=== PATIENT | male | born 1980 | race Two or more races ===

== ENCOUNTER 2020-01-07 12:10 | Outpatient (REF) | payer OTHER, SELFPAY ==
[2020-01-07 13:08] LABS: MANUAL DIFF FLAG NO
[2020-01-07 13:15] LABS: Basophils Absolute Auto 0.1 X10*3/uL (0.0-0.2); Basophils Percent Auto 0.5 % (0-2); Eosinophils Absolute Auto 0.1 X10*3/uL (0.0-0.4); Hematocrit 49.4 % (42-52); Hemoglobin 15.5 g/dl (14.0-18.0); Imm Gran Abs Auto 0.04 X10*3/uL (0.00-0.03); Imm Gran Pct Auto 0.4 % (0.0-0.4); Lymphocytes Absolute Auto 1.7 X10*3/uL (1.2-4.9); Mean Corpuscular HGB Conc 31.4 g/dl (31.0-36.0); Mean Corpuscular Volume 79.8 fL (80-98); Monocytes Absolute Auto 0.7 X10*3/uL (0.1-1.2); Monocytes Percent Auto 6.7 % (2-11); Neutrophils Absolute Auto 7.2 X10*3/uL (2.0-8.3); Neutrophils Percent Auto 74.4 % (45-73); Platelet Count 415 X10*3/uL (160-400); Red Blood Count 6.19 X10*6/uL (4.60-5.80); Red Cell Distribution Width 18.6 % (11.0-16.0); White Blood Count 9.7 X10*3/uL (4.8-10.8)
[2020-01-07 13:48] LABS: Alanine Aminotransferase 84 U/L (0-40); Albumin Level 3.9 g/dL (3.5-5.0); Alkaline Phosphatase 49 U/L (39-117); Anion Gap 14 (12-20); Aspartate Amino Transferase 73 U/L (5-37); Bilirubin Direct 0.4 mg/dL (0.0-0.5); Bilirubin Total 0.9 mg/dL (0.0-1.0); Blood Urea Nitrogen 24 mg/dL (9-16); C Reactive Protein 0.37 mg/dL (< or = 0.50); Calcium 9.1 mg/dL (8.4-10.2); Carbon Dioxide 25 mmol/L (22-29); Chloride 103 mmol/L (96-108); Estimated Glomerular Filt Rate 53; Glucose Random 188 mg/dL (60-115); Potassium 4.8 mmol/l (3.3-5.1); Sodium 137 mmol/L (135-145); Total Protein 6.6 g/dL (6.5-8.0)
== END 2020-01-07 12:11 | disposition home or self-care (01) ==
LOC: HO.LAB 12:10
PROVIDERS: PCP Internal Medicine; Visit Provider Internal Medicine Gastroenterology
DX: K52.9 Noninfective gastroenteritis and colitis, unspecified (principal)
CPT/HCPCS: 36415; 80048; 80076; 85025; 86140

== ENCOUNTER 2020-01-08 09:06 | Outpatient (REF) | payer OTHER, SELFPAY ==
[2020-01-08 15:17] LABS: CDIFF Ag Negative (Negative); CDIFF Internal ctrl Dots and bkg OK (V); CDiff Toxin Negative (Negative)
[2020-01-15 16:17] LABS: Calprotectin, Fecal 64 mcg/g
== END 2020-01-08 09:07 | disposition home or self-care (01) ==
LOC: HO.LNP 09:06
PROVIDERS: Visit Provider Internal Medicine Gastroenterology
DX: K52.9 Noninfective gastroenteritis and colitis, unspecified (principal)
CPT/HCPCS: 83993; 87045; 87046; 87324; 87449

== ENCOUNTER 2020-01-15 10:26 | Outpatient (REF) | payer OTHER, SELFPAY ==
--- NOTE | 2020-01-15 | US_ITS ---
EXAMINATION: US ABDOMEN LIMITED WITH LIVER ELASTOGRAPHY CLINICAL INFORMATION: Liver lesion seen on CT COMPARISON: CT from 05/04/2019. Ultrasound 01/28/2020. TECHNIQUE: Real-time imaging of the right upper quadrant abdominal viscera. Noninvasive ultrasound liver fibrosis assessment is performed using Thuy ElastPQ point quantification shear wave elastography (pSWE) with a 5 MHz transducer. Multiple elastography samples are obtained. FINDINGS: PANCREAS: Not well seen secondary to bowel gas. LIVER: Multiple hyperechoic lesions are again seen within the liver, as previously visualized. The largest is seen in the left lobe measuring 1.4 cm. The liver demonstrates normal contour and echogenicity. No intrahepatic biliary duct dilatation. The right lobe measures 20.1 cm in length. The left lobe measures 14.3 cm in length. Hepatopedal flow of the main portal vein. Shear wave elastography provides a median stiffness of 1.46 m/s (reference: normal median stiffness is 0.8 1-1 0.22 m/s). The IQR/median stiffness to assess sampling precision is 0.18 (reference: optimal IQR/median stiffness is under 0.3). GALLBLADDER: Normal. The gallbladder is physiologically distended without evidence of stones, sludge, polyps, wall thickening or pericholecystic fluid. COMMON BILE DUCT: Normal in caliber measuring 0.4 cm in diameter. RIGHT KIDNEY: Normal. No hydronephrosis. No renal calculi or focal parenchymal lesions. The kidney measures 12.1 cm in maximum dimension. FREE FLUID: None. US/US abdomen altamirano w elastography IMPRESSION: 1. Mild hepatomegaly. Multiple hyperechoic liver lesions are again noted, as seen on previous imaging. These likely represent hemangiomas, but this could be confirmed with MRI. 2. Elastography: Liver elastography measurements are consistent with a moderate risk for clinically significant liver fibrosis (METAVIR Stage F2-F3).
== END 2020-01-15 10:27 | disposition home or self-care (01) ==
LOC: HO.US 10:26
PROVIDERS: PCP Internal Medicine; Visit Provider Internal Medicine Gastroenterology
DX: K76.9 Liver disease, unspecified (principal)
CPT/HCPCS: 76705; 76981

== ENCOUNTER → 2020-02-08 09:04 | Outpatient (BNVA) | payer OTHER, SELFPAY | PROVIDERS: PCP Internal Medicine; Referring Provider Internal Medicine; Visit Provider Internal Medicine Gastroenterology | DX: Z76.89 Persons encountering health services in other specified circumstances (principal) ==

== ENCOUNTER 2020-02-11 09:00 | Outpatient (REF) | payer OTHER, SELFPAY ==
[2020-02-13 13:57] LABS: H Pylori Breath Test DETECTED (NOT DETECTED)
== END 2020-02-11 09:01 | disposition home or self-care (01) ==
LOC: HO.LNP 09:00
PROVIDERS: PCP Internal Medicine; Visit Provider Internal Medicine Gastroenterology
DX: Z11.0 Encounter for screening for intestinal infectious diseases (principal)
CPT/HCPCS: 83013; 99211

== ENCOUNTER 2020-02-19 02:25 | Emergency (ER) | payer OTHER, SELFPAY ==
[2020-02-19 03:11] VITALS: BP 150/86; PULSE 96; RESP 16; TEMP 37.1; O2SAT 97; BMI 32.5
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
[2020-02-19] MEDS: predniSONE 20 MG TABLET 60 MG PO (04:01)
[2020-02-19] MEDS: Ibuprofen 600 MG TABLET PO (04:01)
== END 2020-02-19 04:08 | disposition home or self-care (01) ==
PROVIDERS: Emergency Provider Internal Medicine
DX: M23.91 Unspecified internal derangement of right knee (principal); M25.561 Pain in right knee; M25.562 Pain in left knee; F17.210 Nicotine dependence, cigarettes, uncomplicated; Z71.6 Tobacco abuse counseling; Z79.899 Other long term (current) drug therapy
CPT/HCPCS: 99283; 99284

== ENCOUNTER 2020-02-21 09:13 | Outpatient (REF) | payer OTHER, SELFPAY ==
[2020-02-21 10:25] LABS: MANUAL DIFF FLAG NO
[2020-02-21 10:28] LABS: Basophils Percent Auto 0.2 % (0-2); Eosinophils Percent Auto 0.1 % (0-4); Hematocrit 48.9 % (42-52); Hemoglobin 15.2 g/dl (14.0-18.0); Imm Gran Abs Auto 0.07 X10*3/uL (0.00-0.03); Imm Gran Pct Auto 0.5 % (0.0-0.4); Lymphocytes Absolute Auto 2.6 X10*3/uL (1.2-4.9); Lymphocytes Percent Auto 17.6 % (20-40); Mean Corpuscular HGB Conc 31.1 g/dl (31.0-36.0); Mean Corpuscular Hemoglobin 24.7 pg (27.0-33.0); Mean Corpuscular Volume 79.4 fL (80-98); Mean Platelet Volume 10.3 fL (9.4-12.4); Monocytes Absolute Auto 0.8 X10*3/uL (0.1-1.2); Monocytes Percent Auto 5.1 % (2-11); Neutrophils Absolute Auto 11.5 X10*3/uL (2.0-8.3); Neutrophils Percent Auto 76.5 % (45-73); Platelet Count 428 X10*3/uL (160-400); Red Blood Count 6.16 X10*6/uL (4.60-5.80); Red Cell Distribution Width 18.4 % (11.0-16.0)
[2020-02-21 11:00] LABS: Uric Acid 1.7 mg/dL (3.4-7.0)
[2020-02-21 11:16] LABS: Erythrocyte Sedimentation Rate 6 MM/HR (0-15)
[2020-02-23 13:27] LABS: Lyme Abs Screen <0.90 index
[2020-02-25 03:52] LABS: Syphilis Screen Nonreactive (Nonreactive)
== END 2020-02-21 09:14 | disposition home or self-care (01) ==
LOC: HO.LAB 09:13
PROVIDERS: PCP Hospitalist; Visit Provider Physical Medicine & Rehabilitation
DX: M25.50 Pain in unspecified joint (principal)
CPT/HCPCS: 36415; 84550; 85025; 85652; 86618; 86780

== ENCOUNTER → 2020-02-25 09:29 | Outpatient (BNVA) | payer OTHER, SELFPAY | PROVIDERS: Visit Provider Orthopaedic Surgery | DX: L03.116 Cellulitis of left lower limb (principal) | CPT/HCPCS: 99202 ==

== ENCOUNTER 2020-03-06 10:59 | Outpatient (REF) | payer OTHER, SELFPAY ==
[2020-03-06 12:01] LABS: MANUAL DIFF FLAG NO
[2020-03-06 12:17] LABS: Basophils Percent Auto 0.3 % (0-2); Eosinophils Absolute Auto 0.1 X10*3/uL (0.0-0.4); Eosinophils Percent Auto 1.4 % (0-4); Hematocrit 49.1 % (42-52); Hemoglobin 15.2 g/dl (14.0-18.0); Imm Gran Abs Auto 0.02 X10*3/uL (0.00-0.03); Imm Gran Pct Auto 0.3 % (0.0-0.4); Lymphocytes Absolute Auto 1.5 X10*3/uL (1.2-4.9); Mean Corpuscular Hemoglobin 24.2 pg (27.0-33.0); Mean Corpuscular Volume 78.2 fL (80-98); Monocytes Absolute Auto 0.6 X10*3/uL (0.1-1.2); Neutrophils Absolute Auto 5.6 X10*3/uL (2.0-8.3); Platelet Count 420 X10*3/uL (160-400); Red Blood Count 6.28 X10*6/uL (4.60-5.80); Red Cell Distribution Width 17.4 % (11.0-16.0); White Blood Count 7.8 X10*3/uL (4.8-10.8)
[2020-03-06 12:23] LABS: INTERNATIONAL NORM RATIO 1.1 (0.9-1.1); Prothrombin Time 12.8 SEC (10.8-13.0)
[2020-03-06 12:37] LABS: Alanine Aminotransferase 108 U/L (0-40); Albumin Level 3.9 g/dL (3.5-5.0); Alkaline Phosphatase 60 U/L (39-117); Anion Gap 12 (12-20); Aspartate Amino Transferase 96 U/L (5-37); Bilirubin Total 0.5 mg/dL (0.0-1.0); Blood Urea Nitrogen 27 mg/dL (9-16); Calcium 9.4 mg/dL (8.4-10.2); Carbon Dioxide 27 mmol/L (22-29); Chloride 107 mmol/L (96-108); Estimated Glomerular Filt Rate > 60; Gamma Glutamyl Transpeptidase 44 U/L (11-51); Iron 40 mcg/dL (45-160); Percent Iron Saturation 10 % (15-50); Potassium 4.6 mmol/l (3.3-5.1); Sodium 141 mmol/L (135-145); Total Iron Binding Capacity 394 mcg/dL (228-428); Total Protein 6.7 g/dL (6.5-8.0); Unsaturated Iron Binding 354 ug/dL
[2020-03-06 12:51] LABS: Glucose Random 54 mg/dL (60-115)
[2020-03-06 13:13] LABS: Ferritin 40 ng/mL (20-250)
[2020-03-07 08:01] LABS: Hepatitis A Antibody IgG REACTIVE (Nonreactive); ~Hepatitis A Antibody IgG 13.16 S/CO (0.00-0.99)
[2020-03-07 08:06] LABS: HBsAGNum1 0.22 S/CO (0.00-0.99); Hepatitis B Surface Antigen Negative (Negative)
[2020-03-07 08:20] LABS: HBS Num1 0.33 mIU/mL (0-7.99); HBc Num1 0.08 S/CO (0.00-0.79); Hepatitis B Core Antibody Nonreactive (Nonreactive); ~HepC Num1 0.07 S/CO (0.00-0.79); ~Hepatitis B Surface Antibody NONREACTIVE (Nonreactive); ~Hepatitis C Antibody Nonreactive (Nonreactive)
[2020-03-07 13:18] LABS: Anti Nuclear Antibody Screen NEGATIVE (NEGATIVE)
[2020-03-07 16:27] LABS: Immunoglobulin G 1119 mg/dL (600-1640)
[2020-03-08 13:52] LABS: Alpha 1 Anti-trypsin 145 mg/dL (83-199); Ceruloplasmin 34 mg/dL (18-36)
[2020-03-09 13:27] LABS: Mitochondrial Antibodies NEGATIVE (NEGATIVE)
[2020-03-11 23:18] LABS: Smooth Muscle Antibody <20 U (<20)
== END 2020-03-06 11:00 | disposition home or self-care (01) ==
LOC: HO.LAB 10:59
PROVIDERS: PCP Hospitalist; Visit Provider Internal Medicine Gastroenterology
DX: K52.839 Microscopic colitis, unspecified (principal); R94.5 Abnormal results of liver function studies
CPT/HCPCS: 36415; 80053; 82103; 82390; 82550; 82728; 82784; 82977; 83540; 85025; 85610; 86038; 86039; 86255; 86256; 86704; 86706; 86708; 86803; 87340

== ENCOUNTER 2020-04-17 09:29 | Outpatient (REF) | payer OTHER, SELFPAY ==
--- NOTE | ~2020-04-17 | MR_ITS ---
EXAMINATION: MR ABDOMEN WITHOUT AND WITH CONTRAST CLINICAL INFORMATION: Abnormal liver function tests. Liver lesions. COMPARISON: Previous CT of the abdomen and pelvis April 2019 and abdominal ultrasound elastography December 2019 TECHNIQUE: MR abdomen was performed without and with use of 10 mL intravenous Gadavist gadolinium contrast. Postcontrast images are performed in multiphase dynamic sequences. Imaging was performed in 3 planes. MRCP sequences were also performed. Exam is very limited due to respiratory motion artifact. FINDINGS: LUNG BASES: The visualized lung bases are unremarkable. LIVER, GALLBLADDER, AND BILIARY TREE: The liver is slightly enlarged, right lobe measuring 20 cm. There is mild fatty infiltration of the liver. The liver is normal in contour.There are 4 bright on T2-weighted sequences lesions seen in the liver. These measure 7 mm in the peripheral liver at the junction of the medial segment of the left lobe and anterior segment of the right lobe axial image 16 series 10, 1 cm in the peripheral right lobe axial image 19 series 10, 5 mm in the posterior segment of the right lobe axial image 28 series 10, and 1.1 cm in the lateral segment of the left lobe axial image 22 series 10. The 2 larger lesions are seen on T1-weighted sequences and appear low signal. The 2 larger lesions demonstrate peripheral puddling enhancement following contrast compatible with benign hemangiomas. The 2 smaller lesions are well visualized post-contrast. Larger lesions are compatible with hemangiomas. Smaller lesions are difficult to accurately characterize. The gallbladder is normal. There is no biliary duct dilatation. PANCREAS: Unremarkable. SPLEEN: The spleen is upper normal in size.. The spleen measures 13.3 cm in length. ADRENAL GLANDS: Normal. KIDNEYS AND URETERS: The kidneys are normal in size, shape, and enhance symmetrically. No hydronephrosis. No perinephric stranding. GASTROINTESTINAL TRACT: No bowel obstruction. No ascites or fluid collection. ABDOMINAL WALL: No significant hernia is appreciated. LYMPH NODES: No lymphadenopathy. VASCULAR: Unremarkable. OSSEOUS STRUCTURES: Marrow signal normal. MR/MR abdomen wo/w con IMPRESSION: Very limited exam due to respiratory motion artifact. Four liver lesions seen. The 2 larger lesions in the peripheral right lobe and lateral segment of the left lobe near the falciform ligament are compatible with benign hemangiomas. Two smaller lesions at the junction of the medial segment of the left lobe and anterior segment of the right lobe and posterior segment of the right lobe are not visualized on all sequences and difficult to characterize. Slightly enlarged fatty liver. Upper normal-size spleen.
== END 2020-04-17 09:30 | disposition home or self-care (01) ==
LOC: HO.MRI 09:29
PROVIDERS: Visit Provider Internal Medicine Gastroenterology
DX: R16.0 Hepatomegaly, not elsewhere classified (principal); R94.5 Abnormal results of liver function studies
CPT/HCPCS: 74183; A9585

== ENCOUNTER → 2020-05-09 09:49 | Outpatient (BNVA) | payer OTHER, SELFPAY | PROVIDERS: PCP Hospitalist; Visit Provider Internal Medicine Gastroenterology ==

== ENCOUNTER 2021-01-16 07:32 | Outpatient (REF) | payer OTHER, SELFPAY ==
[2021-01-16 07:49] LABS: MANUAL DIFF FLAG NO
[2021-01-16 07:53] LABS: Basophils Percent Auto 0.3 % (0-2); Eosinophils Absolute Auto 0.1 X10*3/uL (0.0-0.4); Eosinophils Percent Auto 2.2 % (0-4); Hemoglobin 16.7 g/dl (14.0-18.0); Imm Gran Abs Auto 0.01 X10*3/uL (0.00-0.03); Imm Gran Pct Auto 0.2 % (0.0-0.4); Lymphocytes Absolute Auto 1.6 X10*3/uL (1.2-4.9); Lymphocytes Percent Auto 26.9 % (20-40); Mean Corpuscular HGB Conc 32.7 g/dl (31.0-36.0); Mean Corpuscular Hemoglobin 26.2 pg (27.0-33.0); Mean Corpuscular Volume 80.1 fL (80.0-98.0); Mean Platelet Volume 10.2 fL (9.4-12.4); Monocytes Absolute Auto 0.4 X10*3/uL (0.1-1.2); Monocytes Percent Auto 7.1 % (2-11); Neutrophils Absolute Auto 3.7 x10*3/uL (2.0-8.3); Neutrophils Percent Auto 63.3 % (45-73); Platelet Count 231 X10*3/uL (160-400); Red Blood Count 6.37 X10*6/uL (4.60-5.80); White Blood Count 5.9 X10*3/uL (4.8-10.8)
[2021-01-16 08:20] LABS: Alanine Aminotransferase 30 U/L (0-40); Albumin Level 3.9 g/dL (3.5-5.0); Alkaline Phosphatase 90 U/L (39-117); Anion Gap 11 (12-20); Aspartate Amino Transferase 30 U/L (5-37); Bilirubin Total 0.8 mg/dL (0.0-1.0); Blood Urea Nitrogen 21 mg/dL (9-16); C Reactive Protein 0.41 mg/dL (< or = 0.50); Calcium 9.1 mg/dL (8.4-10.2); Carbon Dioxide 24 mmol/L (22-29); Chloride 108 mmol/L (96-108); Estimated Glomerular Filt Rate > 60; Glucose Random 165 mg/dL (60-115); Potassium 4.3 mmol/L (3.3-5.1); Sodium 139 mmol/L (135-145); Total Protein 6.4 g/dL (6.5-8.0)
[2021-01-16 08:34] LABS: Gamma Glutamyl Transpeptidase 21 U/L (11-51)
[2021-01-16 08:38] LABS: TSH reflex Free T4 2.15 uIU/mL (0.32-4.0)
[2021-01-16 09:32] LABS: Erythrocyte Sedimentation Rate 1 MM/HR (0-15)
[2021-01-19 21:37] LABS: Thyrotropin Receptor Antibody <1.00 IU/L (<=2.00)
[2021-01-20 02:11] LABS: Zinc 113 mcg/dL (60-130)
[2021-01-21 06:36] LABS: Aldolase 7.1 U/L (<=8.1)
[2021-01-21 10:47] LABS: Vitamin C 0.9 mg/dL (0.2-2.1)
== END 2021-01-16 07:33 | disposition home or self-care (01) ==
LOC: HO.LAB 07:32
PROVIDERS: PCP Hospitalist; Visit Provider Internal Medicine Gastroenterology
DX: R94.5 Abnormal results of liver function studies (principal); R16.0 Hepatomegaly, not elsewhere classified; K52.839 Microscopic colitis, unspecified
CPT/HCPCS: 36415; 80053; 82085; 82180; 82550; 82977; 83520; 84443; 84630; 85025; 85652; 86140

== ENCOUNTER 2021-10-18 02:05 | Emergency (ER) | payer OTHER, SELFPAY ==
--- NOTE | ~2021-10-18 | CT_ITS ---
EXAMINATION: CT ABDOMEN AND PELVIS WITHOUT CONTRAST CLINICAL INFORMATION: Flank pain. Question etiology. COMPARISON: MRI 04/17/2020 TECHNIQUE: Multidetector volumetric imaging was performed from the superior aspect of the liver through the pubic symphysis. Sagittal and coronal reformatted images were obtained on the technologist's workstation. This CT examination was performed using dose optimization techniques as appropriate, variously including the following: *Automated exposure control *Adjustment of mA and/or kV according to patient size (this includes techniques or standardized protocols for targeted exams where dose is matched to indication/reason for exam; i.e. extremities or head) *Use of iterative reconstruction technique DLP: 606 mGy-cm FINDINGS: LUNG BASES: The visualized lung bases are unremarkable. LIVER, GALLBLADDER, AND BILIARY TREE: The liver is normal in size, shape, and attenuation. No focal hepatic lesion or biliary ductal dilatation is present. The gallbladder is unremarkable with no evidence of radiopaque gallstones, gallbladder wall thickening, or obvious pericholecystic inflammatory changes. PANCREAS: Unremarkable. SPLEEN: Unremarkable. ADRENAL GLANDS: Unremarkable. KIDNEYS AND URETERS: The kidneys are normal in size, shape, and attenuation. No hydronephrosis, hydroureter, or calculi seen. No perinephric stranding. BLADDER: Unremarkable. GASTROINTESTINAL TRACT: The small and large bowel are unremarkable. The appendix is unremarkable. ABDOMINAL WALL: No significant hernia is appreciated. LYMPH NODES: Normal. VASCULAR: Unremarkable. PELVIC VISCERA: The prostate and seminal vesicles are unremarkable. OSSEOUS STRUCTURES: Unremarkable. CT/CT abdomen pelvis wo con IMPRESSION: No acute finding in the abdomen or pelvis. No hydronephrosis or nephrolithiasis. Normal appendix. No inflammatory changes. Fleischner guidelines were followed.
[2021-10-18 02:21] VITALS: BP 144/76; PULSE 80; O2SAT 92
[2021-10-18 02:22] VITALS: BP 126/70; PULSE 97; RESP 18; TEMP 37.2; O2SAT 97; BMI 31.3
[2021-10-18 02:36] LABS: MANUAL DIFF FLAG NO
[2021-10-18 02:38] LABS: Basophils Percent Auto 0.3 % (0-2); Eosinophils Absolute Auto 0.3 X10*3/uL (0.0-0.4); Eosinophils Percent Auto 3.2 % (0-4); Hemoglobin 14.8 g/dl (14.0-18.0); Imm Gran Abs Auto 0.03 X10*3/uL (0.00-0.03); Imm Gran Pct Auto 0.3 % (0.0-0.4); Lymphocytes Absolute Auto 1.4 X10*3/uL (1.2-4.9); Lymphocytes Percent Auto 13.6 % (20-40); Mean Corpuscular HGB Conc 31.5 g/dl (31.0-36.0); Mean Corpuscular Hemoglobin 24.9 pg (27.0-33.0); Mean Platelet Volume 9.7 fL (9.4-12.4); Monocytes Absolute Auto 0.7 X10*3/uL (0.1-1.2); Monocytes Percent Auto 6.8 % (2-11); Neutrophils Absolute Auto 7.9 x10*3/uL (2.0-8.3); Neutrophils Percent Auto 75.8 % (45-73); Platelet Count 265 X10*3/uL (160-400); Red Blood Count 5.95 X10*6/uL (4.60-5.80); Red Cell Distribution Width 18.9 % (11.0-16.0); White Blood Count 10.4 X10*3/uL (4.8-10.8)
[2021-10-18 02:39] LABS: Appearance Urine Clear; Color Urine Yellow; Glucose Urine UA >=1000 mg/dL (Negative); Leukocyte Esterase Urine Negative (Negative); Nitrite Urine Negative (Negative); PH 5.5 (5.0-8.0); Specific Gravity - Urine 1.015 (1.005-1.025); Urine Blood Negative (Negative); Urine Ketones Trace mg/dL (Negative); Urine Protein Negative (Neg-Trace)
[2021-10-18 02:44] LABS: Bacteria Urine None Seen (None Seen); Hyaline Casts Urine 0-2 /LPF (0-2); RBC Urine 0-2 /HPF (0-2); Squamous Epithelial Cell Urine 0-2 /HPF (0-2); WBC Urine 0-5 /HPF (0-5)
[2021-10-18 02:53] LABS: COVID-19 Test Negative (Negative)
[2021-10-18 03:03] LABS: Alanine Aminotransferase 46 U/L (0-40); Albumin Level 3.6 g/dL (3.5-5.0); Alkaline Phosphatase 76 U/L (39-117); Anion Gap 18 (12-20); Aspartate Amino Transferase 47 U/L (5-37); Bilirubin Direct 0.3 mg/dL (0.0-0.5); Bilirubin Total 0.6 mg/dL (0.0-1.0); Blood Urea Nitrogen 28 mg/dL (9-16); Calcium 9.3 mg/dL (8.4-10.2); Carbon Dioxide 24 mmol/L (22-29); Chloride 102 mmol/L (96-108); Creatinine Clr Calc Pharmacy 52.7; Estimated Glomerular Filt Rate 35; Glucose Random 370 mg/dL (60-115); Lipase 16 U/L (8-78); Potassium 4.8 mmol/L (3.3-5.1); Sodium 139 mmol/L (135-145); Total Protein 6.1 g/dL (6.5-8.0)
[2021-10-18 04:41] VITALS: BP 131/59; PULSE 102; RESP 20; TEMP 36.8; O2SAT 94
[2021-10-18 04:53] LABS: Glucose, Whole Blood 322 mg/dL (60-115)
--- NOTE | 2021-10-18 05:22 | ED_ITS ---
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 Says is drinking enough fluids no urinary complaints no blood in the urine no history of kidney stone patient an MRI of the abdomen 2 years ago was negative patient denies any other muscular pain Related Data Home Medications Medication Instructions Recorded Confirmed budesonide 9 mg tablet,delayed and 9 mg PO DAILY 02/08/20 02/08/20 extended release insulin glargine 100 unit/mL (3 unit subcut 02/25/20 mL) subcutaneous pen insulin lispro 100 unit/mL unit subcut 02/25/20 subcutaneous pen sulfamethoxazole 800 1 tab PO BID 02/25/20 mg-trimethoprim 160 mg tablet Previous Rx's Medication Instructions Recorded ibuprofen 600 mg tablet 600 mg PO Q6H PRN pain #20 tabs 02/19/20 prednisone 20 mg tablet 60 mg PO DAILY #10 tabs 02/19/20 sulfamethoxazole 800 1 tab PO Q12H 10 days #20 tabs 02/25/20 mg-trimethoprim 160 mg tablet (Bactrim DS) bismuth subsalicylate 262 mg 2 tab PO QID 14 days #112 tabs 02/28/20 chewable tablet metronidazole 500 mg tablet 500 mg PO TID 14 days #42 tabs 02/28/20 pantoprazole 40 mg tablet,delayed 40 mg PO BID 14 days #28 tabs 02/28/20 release tetracycline 500 mg capsule 500 mg PO Q6H 14 days #56 caps 02/28/20 Allergies Allergy/AdvReac Type Severity Reaction Status Date / Time No Known Allergies Allergy Verified 05/09/20 09:49 [No Known Allergies*] Review of Systems Review of Systems Yes all other systems are reviewed and are negative [facility] Past Medical History Medical History Diabetes Surgical History No pertinent past surgical history Family History Family History Father No problems noted. 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 Oriented X3. No acute distress. Heavy built muscular Eyes: PERRLA, No Nystagmus ENT: Pharynx normal. Oral Mucosa moist Neck: Normal inspection. Neck supple. CVS: Normal heart rate and rhythm. Pulses normal. Respiratory: No respiratory distress. Equal air entry bilateral, no wheezing/r ales/rhonchi Abdomen: Soft and nontender. Bowel sounds are present, no mass palpable, bilateral flank tenderness Skin: Skin warm and dry. Normal skin color. Normal skin turgor. Extremities: No lower extremity edema. No calf tenderness Neuro: Oriented X 3. No motor deficit. MDM - Abdominal Pain MDM Narrative Medical decision making narrative: 6 am Patient with bilateral flank pain workup showed IVY with creatinine of 2.1 increased from 1.1. Patient denied any severe exercise says that he is doing only 1 hour of weightlifting.. Will give 2 L of IV fluids recheck labs CT scan Abdo negative for any obstructive uropathy Lab Data Attestation: I reviewed the patient's lab results. Result diagrams: 10/18/21 02:31 10/18/21 02:31 Labs: Lab Results 10/18/21 10/18/21 10/18/21 Range/Units 02:31 02:31 02:31 WBC 10.4 (4.8-10.8) X10*3/uL RBC 5.95 H (4.60-5.80) X10*6/uL Hgb 14.8 (14.0-18.0) g/dl Hct 47.0 (42.0-52.0) % MCV 79.0 L (80.0-98.0) fL MCH 24.9 L (27.0-33.0) pg MCHC 31.5 (31.0-36.0) g/dl RDW 18.9 H (11.0-16.0) % Plt Count 265 (160-400) X10*3/uL MPV 9.7 (9.4-12.4) fL Immature Gran % (Auto) 0.3 (0.0-0.4) % Neut % (Auto) 75.8 H (45-73) % Lymph % (Auto) 13.6 L (20-40) % Jackson % (Auto) 6.8 (2-11) % Eos % (Auto) 3.2 (0-4) % Baso % (Auto) 0.3 (0-2) % Lymph # (Auto) 1.4 (1.2-4.9) X10*3/uL Jackson # (Auto) 0.7 (0.1-1.2) X10*3/uL Eos # (Auto) 0.3 (0.0-0.4) X10*3/uL Baso # (Auto) 0.0 (0.0-0.2) X10*3/uL Abs Immat Gran (auto) 0.03 (0.00-0.03) X10*3/uL Absolute Neuts (auto) 7.9 (2.0-8.3) x10*3/uL Absolute Nucleated RBC 0.000 (0.0-0.012) X10*3/uL Nucleated RBC % (auto) 0.0 (0.0-0.2) /100WBC Sodium 139 (135-145) mmol/L Potassium 4.8 (3.3-5.1) mmol/L Chloride 102 (96-108) mmol/L Carbon Dioxide 24 (22-29) mmol/L Anion Gap 18 (12-20) BUN 28 H (9-16) mg/dL Creatinine 2.11 H (0.5-1.4) mg/dL Estim Creat Clear Calc 52.7 Estimated GFR 35 POC Glucose (60-115) mg/dL Random Glucose 370 H* (60-115) mg/dL Calcium 9.3 (8.4-10.2) mg/dL Total Bilirubin 0.6 (0.0-1.0) mg/dL Direct Bilirubin 0.3 (0.0-0.5) mg/dL AST 47 H D (5-37) U/L ALT 46 H (0-40) U/L Alkaline Phosphatase 76 (39-117) U/L Total Creatine Kinase 905 H D (38-174) U/L Total Protein 6.1 L (6.5-8.0) g/dL Albumin 3.6 (3.5-5.0) g/dL Lipase 16 (8-78) U/L Urine Color Yellow Urine Appearance Clear Urine pH 5.5 (5.0-8.0) Ur Specific Haworth 1.015 (1.005-1.025) Urine Protein Negative (Neg-Trace) mg/dL Urine Glucose (UA) >=1000 H (Negative) mg/dL Urine Ketones Trace (Negative) mg/dL Urine Blood Negative (Negative) Urine Nitrite Negative (Negative) Ur Leukocyte Esterase Negative (Negative) Urine RBC 0-2 (0-2) /HPF Urine WBC 0-5 (0-5) /HPF Ur Squamous Epith Cells 0-2 (0-2) /HPF Urine Bacteria None Seen (None Seen) Hyaline Casts 0-2 (0-2) /LPF COVID-19 (CHRISTOPHER) (Negative) COVID-19 Clin Com 10/18/21 10/18/21 Range/Units 02:31 04:43 WBC (4.8-10.8) X10*3/uL RBC (4.60-5.80) X10*6/uL Hgb (14.0-18.0) g/dl Hct (42.0-52.0) % MCV (80.0-98.0) fL MCH (27.0-33.0) pg MCHC (31.0-36.0) g/dl RDW (11.0-16.0) % Plt Count (160-400) X10*3/uL MPV (9.4-12.4) fL Immature Gran % (Auto) (0.0-0.4) % Neut % (Auto) (45-73) % Lymph % (Auto) (20-40) % Jackson % (Auto) (2-11) % Eos % (Auto) (0-4) % Baso % (Auto) (0-2) % Lymph # (Auto) (1.2-4.9) X10*3/uL Jackson # (Auto) (0.1-1.2) X10*3/uL Eos # (Auto) (0.0-0.4) X10*3/uL Baso # (Auto) (0.0-0.2) X10*3/uL Abs Immat Gran (auto) (0.00-0.03) X10*3/uL Absolute Neuts (auto) (2.0-8.3) x10*3/uL Absolute Nucleated RBC (0.0-0.012) X10*3/uL Nucleated RBC % (auto) (0.0-0.2) /100WBC Sodium (135-145) mmol/L Potassium (3.3-5.1) mmol/L Chloride (96-108) mmol/L Carbon Dioxide (22-29) mmol/L Anion Gap (12-20) BUN (9-16) mg/dL Creatinine (0.5-1.4) mg/dL Estim Creat Clear Calc Estimated GFR POC Glucose 322 H (60-115) mg/dL Random Glucose (60-115) mg/dL Calcium (8.4-10.2) mg/dL Total Bilirubin (0.0-1.0) mg/dL Direct Bilirubin (0.0-0.5) mg/dL AST (5-37) U/L ALT (0-40) U/L Alkaline Phosphatase (39-117) U/L Total Creatine Kinase (38-174) U/L Total Protein (6.5-8.0) g/dL Albumin (3.5-5.0) g/dL Lipase (8-78) U/L Urine Color Urine Appearance Urine pH (5.0-8.0) Ur Specific Haworth (1.005-1.025) Urine Protein (Neg-Trace) mg/dL Urine Glucose (UA) (Negative) mg/dL Urine Ketones (Negative) mg/dL Urine Blood (Negative) Urine Nitrite (Negative) Ur Leukocyte Esterase (Negative) Urine RBC (0-2) /HPF Urine WBC (0-5) /HPF Ur Squamous Epith Cells (0-2) /HPF Urine Bacteria (None Seen) Hyaline Casts (0-2) /LPF COVID-19 (CHRISTOPHER) Negative (Negative) COVID-19 Clin Com See Note Discharge Plan Discharge Clinical Impression: Acute renal failure, Rhabdomyolysis Patient Disposition: Still a Patient Instructions: Acute Kidney Injury (DC), Rhabdomyolysis (ED) Additional Instructions: Drink plenty of fluids control your blood sugar is advised recheck your kidney functions next week Prescriptions: No Action bismuth subsalicylate 262 mg tablet,chewable 2 tab PO QID 14 Days Qty: 112 0RF metronidazole 500 mg tablet 500 mg PO TID 14 Days Qty: 42 0RF tetracycline 500 mg capsule 500 mg PO Q6H 14 Days Qty: 56 0RF pantoprazole 40 mg tablet,delayed release (DR/EC) 40 mg PO BID 14 Days Qty: 28 0RF prednisone 20 mg tablet 60 mg PO DAILY Qty: 10 0RF ibuprofen 600 mg tablet 600 mg PO Q6H PRN (Reason: pain) Qty: 20 0RF budesonide 9 mg tablet,delayed and ext.release 9 mg PO DAILY sulfamethoxazole-trimethoprim [Bactrim DS] 800-160 mg tablet 1 tab PO Q12H 10 Days Qty: 20 0RF
[2021-10-18] MEDS: Ketorolac Tromethamine 60 MG/2 ML VIAL IM (06:03)
--- NOTE | 2021-10-18 06:06 | PC.NURSE ---
pt taken to ct, steady gait.
[2021-10-18] MEDS: 0.9 % Sodium Chloride 1,000 ML 999 ML IV ×2 (06:45)
--- NOTE | 2021-10-18 07:52 | PC.NURSE ---
NEW IV ACCESS GAINED INITIAL LINE WAS INFILTRATED, IV FLUIDS INFUSING, PT NAPPING BETWEEN. NO OUTWARD DISTRESS
[2021-10-18 09:42] LABS: Basophils Percent Auto 0.4 % (0-2); Eosinophils Absolute Auto 0.2 X10*3/uL (0.0-0.4); Hematocrit 46.5 % (42.0-52.0); Hemoglobin 14.6 g/dl (14.0-18.0); Imm Gran Abs Auto 0.03 X10*3/uL (0.00-0.03); Imm Gran Pct Auto 0.4 % (0.0-0.4); Lymphocytes Absolute Auto 1.1 X10*3/uL (1.2-4.9); Lymphocytes Percent Auto 13.8 % (20-40); MANUAL DIFF FLAG NO; Mean Corpuscular HGB Conc 31.4 g/dl (31.0-36.0); Mean Corpuscular Hemoglobin 25.5 pg (27.0-33.0); Mean Corpuscular Volume 81.2 fL (80.0-98.0); Mean Platelet Volume 10.2 fL (9.4-12.4); Monocytes Absolute Auto 0.5 X10*3/uL (0.1-1.2); Monocytes Percent Auto 5.9 % (2-11); Neutrophils Absolute Auto 6.3 x10*3/uL (2.0-8.3); Neutrophils Percent Auto 77.5 % (45-73); Platelet Count 244 X10*3/uL (160-400); Red Blood Count 5.73 X10*6/uL (4.60-5.80); Red Cell Distribution Width 18.8 % (11.0-16.0); White Blood Count 8.1 X10*3/uL (4.8-10.8)
[2021-10-18 10:12] LABS: Alanine Aminotransferase 41 U/L (0-40); Albumin Level 3.4 g/dL (3.5-5.0); Alkaline Phosphatase 78 U/L (39-117); Anion Gap 20 (12-20); Aspartate Amino Transferase 37 U/L (5-37); Bilirubin Total 0.8 mg/dL (0.0-1.0); Blood Urea Nitrogen 29 mg/dL (9-16); Calcium 8.8 mg/dL (8.4-10.2); Carbon Dioxide 20 mmol/L (22-29); Chloride 102 mmol/L (96-108); Creatinine Clr Calc Pharmacy 52.7; Estimated Glomerular Filt Rate 35; Potassium 5.3 mmol/L (3.3-5.1); Sodium 137 mmol/L (135-145); Total Protein 5.8 g/dL (6.5-8.0)
[2021-10-18 10:14] LABS: Glucose Random 441 mg/dL (60-115)
[2021-10-18] MEDS: Insulin Lispro 100 UNIT/ML 3 ML VIAL 12 UNIT SUBCUT (10:22)
[2021-10-18] MEDS: 0.9 % Sodium Chloride 1,000 ML 999 ML IVCONT ×2 (10:23→10:25)
[2021-10-18 11:25] VITALS: BP 158/77; PULSE 88; RESP 14; O2SAT 97
[2021-10-18 12:16] LABS: Glucose, Whole Blood 318 mg/dL (60-115)
[2021-10-18 12:26] LABS: Alanine Aminotransferase 42 U/L (0-40); Albumin Level 3.4 g/dL (3.5-5.0); Alkaline Phosphatase 77 U/L (39-117); Anion Gap 17 (12-20); Aspartate Amino Transferase 35 U/L (5-37); Bilirubin Total 0.7 mg/dL (0.0-1.0); Blood Urea Nitrogen 29 mg/dL (9-16); Calcium 8.4 mg/dL (8.4-10.2); Carbon Dioxide 22 mmol/L (22-29); Chloride 105 mmol/L (96-108); Creatinine Clr Calc Pharmacy 55.3; Estimated Glomerular Filt Rate 37; Glucose Random 380 mg/dL (60-115); Potassium 4.8 mmol/L (3.3-5.1); Sodium 139 mmol/L (135-145); Total Protein 5.7 g/dL (6.5-8.0)
[2021-10-18] MEDS: Insulin Lispro 100 UNIT/ML 3 ML VIAL 8 UNIT SUBCUT (13:17)
== END 2021-10-18 13:25 | disposition still patient (30) ==
PROVIDERS: Internal Medicine; Emergency Provider Emergency Medicine; PCP Internal Medicine
DX: M62.82 Rhabdomyolysis (principal); R10.9 Unspecified abdominal pain; F17.210 Nicotine dependence, cigarettes, uncomplicated; Z20.822 Contact with and (suspected) exposure to COVID-19; Z71.6 Tobacco abuse counseling; Z79.899 Other long term (current) drug therapy
CPT/HCPCS: 36415; 74176; 80053; 81001; 82248; 82550; 82947; 83690; 85025; 87635; 96365; 96366; 96372; 99284; J1885

== ENCOUNTER 2025-02-26 09:48 | Emergency (ER) | payer OTHER, SELFPAY ==
[2025-02-26 10:30] VITALS: BP 135/65; PULSE 103; RESP 18; TEMP 36.7; O2SAT 96; BMI 34.5
--- NOTE | 2025-02-26 10:33 | ED_ITS ---
HPI - Skin/Abscess/Foreign Bdy General Chief complaint: Skin/Abscess/Foreign Body Stated complaint: hip abscess Related Data Home Medications ?Medication ?Instructions ?Recorded ?Confirmed budesonide 9 mg tablet,delayed and 9 mg PO DAILY 02/0702/08/20 extended release insulin glargine 100 unit/mL (3 unit subcut 02/25/20 mL) subcutaneous pen insulin lispro 100 unit/mL unit subcut 02/25/20 subcutaneous pen sulfamethoxazole 800 1 tab PO BID 02/25/20 mg-trimethoprim 160 mg tablet Previous Rx's ?Medication ?Instructions ?Recorded ibuprofen 600 mg tablet 600 mg PO Q6H PRN pain #20 t abs 02/19/20 prednisone 20 mg tablet 60 mg (3 x 20 mg) PO DAILY # 10 tabs 02/19/20 sulfamethoxazole 800 1 tab PO Q12H 10 days #20 ta bs 02/25/20 mg-trimethoprim 160 mg tablet (Bactrim DS) bismuth subsalicylate 262 mg 2 tab PO QID 14 days #112 tabs 02/28/20 chewable tablet metronidazole 500 mg tablet 500 mg PO TID 14 days #42 tabs 02/28/20 pantoprazole 40 mg tablet,delayed 40 mg PO BID 14 days #28 tabs 02/28/20 release tetracycline 500 mg capsule 500 mg PO Q6H 14 days #56 caps 02/28/20 Allergies Allergy/AdvReac Type Severity Reaction Status Date / Time No Known Allergies (No Known Allergy Verified 02/26/25 10:31 Allergies*) COUNT INCLUDES THE [facility] Past Medical History Medical History Diabetes Surgical History No pertinent past surgical history Family History Family History Father No problems noted. 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 Full HPI, ROS and PE to be performed by primary ED provider. 44-year-old male presenting to the ED c/o R groin/thigh abscess x1 week. Admits was draining however no longer is with increasing swelling. Admits to multiple I and D's in the past PE: Area not examined in triage Plan: defer to main provider Discharge Plan Discharge Clinical Impression: Abscess of skin or subcutaneous tissue Patient Disposition: Left W/O Completing Treatment Prescriptions: No Action bismuth subsalicylate 262 mg tablet,chewable 2 tab PO QID 14 Days Qty: 112 0RF metronidazole 500 mg tablet 500 mg PO TID 14 Days Qty: 42 0RF tetracycline 500 mg capsule 500 mg PO Q6H 14 Days Qty: 56 0RF pantoprazole 40 mg tablet,delayed release (DR/EC) 40 mg PO BID 14 Days Qty: 28 0RF prednisone 20 mg tablet 60 mg PO DAILY Qty: 10 0RF ibuprofen 600 mg tablet 600 mg PO Q6H PRN (Reason: pain) Qty: 20 0RF budesonide 9 mg tablet,delayed and ext.release 9 mg PO DAILY sulfamethoxazole-trimethoprim [Bactrim DS] 800-160 mg tablet 1 tab PO Q12H 10 Days Qty: 20 0RF Discharge Date/Time: 02/26/25 20:43
--- OUTSIDE RECORDS SUMMARY | 2025-02-26 20:36 | XMS_ITS ---
Author Name [facility] Organization Unknown Care Team Organization Name Specialty Phone Email Start Date End [email or web address]
--- OUTSIDE RECORDS SUMMARY | 2025-02-26 20:37 | XMS_ITS | Patient Health Record ---
Author Organization [facility] Address [address] [place] [address] Care Team Providers Care Security Specialist Name Role Phone OLLIE ALTMAND Primary Care Provider Manjitniko Priti Unavailable [phone] FlorenciotomyBenja carbonetamera Unavailable [phone] Allergies Allergen (clinical drug ingredient) Drug/Non Drug Allergy documented on EMR Reaction Allergy Type Onset Date Status empagliflozin Jardiance Unknown Drug Allergy Act zander Results Component Value Reference Range Notes Comp. Metabolic Panel ([id number])-[id number] Reviewed date:04/12/2024 09:17:29 AM Interpretation: Performing Lab:[facility], [address] [place] [address], [place], Phone - [phone], Director - Jono Notes/Report: Glucose 190 70-99 mg/dL BUN 23 6-24 mg/dL Creatinine 1.22 0.76-1.27 mg/dL eGFR 75 >59 mL/min/1.73 BUN/Creatinine Ratio 19 9-20 Sodium 139 134-144 mmol/L Potassium 4.8 3.5-5.2 mmol/L Chloride 103 96-106 mmol/L Carbon Dioxide, Total 22 20-29 mmol/L Calcium 9.3 8.7-10.2 mg/dL Protein, Total 6.7 6.0-8.5 g/dL Albumin 4.4 4.1-5.1 g/dL Globulin, Total 2.3 1.5-4.5 g/dL Bilirubin, Total 0.4 0.0-1.2 mg/dL Alkaline Phosphatase 107 44-121 IU/L AST (SGOT) 33 0-40 IU/L ALT (SGPT) 28 0-44 IU/L Lipid Panel-[id number] Reviewed date:04/11/2024 10:52:57 PM Interpretation: Performing [facility], [address] [place] [address], Phone - [phone], Director - MSEstela Notes/Report: Cholesterol, Total 166 100-199 mg/dL Triglycerides 151 0-149 mg/dL HDL Cholesterol 43 >39 mg/dL VLDL Cholesterol Alejo 27 5-40 mg/dL LDL Chol Calc ([facility]) 96 0-99 mg/dL Albumin/Creatinine Ratio,Uri [id number] Reviewed date:04/11/2024 10:52:27 PM Interpretation: Performing Lab:[facility], [address] [place] [address], Phone - [phone], Director - MSEstela Notes/Report: Creatinine, Urine 128.0 Not Estab. mg/dL Albumin, Urine 6.6 Not Estab. ug/mL Alb/Creat Ratio 5 0-29 mg/g creat Normal: 0 - 29 Moderately increased: 30 - 300 Severely increased: >300 Hemoglobin [id number] Reviewed date:04/17/2024 11:14:27 AM Interpretation: Performing Lab:[facility] [place], [address] [place] [address], Phone - [phone], Director - MSEstela Notes/Report: Hemoglobin A1c 9.7 4.8-5.6 % . Prediabetes: 5.7 - 6.4 Diabetes: >6.4 Glycemic control for adults with diabetes: <7.0 25-Hydroxyvitamin D LCMS D2+ [id number] Reviewed date:11/07/2024 05:10:34 PM Interpretation: Performing Lab:[facility] [place], [address] [place] [address], Phone - [phone], Director - [facility] Notes/Report: 25-Hydroxy, Vitamin D 41 Reference Range: All Ages: Target levels 30 - 100 25-Hydroxy, Vitamin D-2 <1.0 This test was developed and its performance characteristics determined by [facility]. It has not been cleared or approved by the Food and Drug Administration. 25-Hydroxy, Vitamin D-3 41 This test was developed and its performance characteristics determined by [facility]. It has not been cleared or approved by the Food and Drug Administration. Lipid Panel-[id number] Reviewed date:11/07/2024 05:10:39 PM Interpretation: Performing Lab:[facility] [place], [address] [facility], Phone - [phone], Director - Jono Notes/Report: Cholesterol, Total 101 100-199 mg/dL Triglycerides 114 0-149 mg/dL HDL Cholesterol 20 >39 mg/dL VLDL Cholesterol Alejo 21 5-40 mg/dL LDL Chol Calc ([facility]) 60 0-99 mg/dL Comp. Metabolic Panel (14)-[id number] Reviewed date:11/07/2024 05:10:42 PM Interpretation: Performing Lab:[facility] [place], [address] [facility], [place], Phone - [phone], Director - Jono Notes/Report: Glucose 82 70-99 mg/dL BUN 21 6-24 mg/dL Creatinine 1.42 0.76-1.27 mg/dL eGFR 62 >59 mL/min/1.73 BUN/Creatinine Ratio 15 9-20 Sodium 142 134-144 mmol/L Potassium 4.8 3.5-5.2 mmol/L Chloride 104 96-106 mmol/L Carbon Dioxide, Total 23 20-29 mmol/L Calcium 9.1 8.7-10.2 mg/dL Protein, Total 6.8 6.0-8.5 g/dL Albumin 4.0 4.1-5.1 g/dL Globulin, Total 2.8 1.5-4.5 g/dL Bilirubin, Total 0.4 0.0-1.2 mg/dL Alkaline Phosphatase 62 44-121 IU/L Effective November 12, 2024 Alkaline Phosphatase reference interval will be changing to: Age Male Female 0 - 5 days 47 - 127 47 - 127 6 - 10 days 29 - 242 29 - 242 11 - 20 days 109 - 357 109 - 357 21 - 30 days 94 - 494 94 - 494 1 - 2 months 149 - 539 149 - 539 3 - 6 months 131 - 452 131 - 452 7 - 11 months 117 - 401 117 - 401 12 months - 6 years 158 - 369 158 - 369 7 - 12 years 150 - 409 150 - 409 13 years 156 - 435 78 - 227 14 years 114 - 375 64 - 161 15 years 88 - 279 56 - 134 16 years 74 - 207 51 - 121 17 years 63 - 161 47 - 113 18 - 20 years 51 - 125 42 - 106 21 - 50 years 47 - 123 41 - 116 51 - 80 years 49 - 135 51 - 125 >80 years 48 - 129 48 - 129 AST (SGOT) 74 0-40 IU/L ALT (SGPT) 67 0-44 IU/L TSH+Free [id number] Reviewed date:11/07/2024 05:10:46 PM Interpretation: Performing Lab:[facility] [place], [address] [facility], [place], Phone - [phone], Director - MDRosa Mdry Notes/Report: TSH 4.690 0.450-4.500 uIU/mL T4,Free(Direct) 1.21 0.82-1.77 ng/dL Hemoglobin [id number] Reviewed date:11/07/2024 05:10:52 PM Interpretation: Performing Lab:[facility] [place], [address], [place], Phone - [phone], Director - MDEstela Notes/Report: Hemoglobin A1c 7.6 4.8-5.6 % . Prediabetes: 5.7 - 6.4 Diabetes: >6.4 Glycemic control for adults with diabetes: <7.0 Reason For Referral Reason please evaluate and treat please evaluate and treat Diagnosis 1 Hair loss (L65.9) Referral Organization [facility] Referring Provider First Name Tanner Referring Provider Last Name Rich Referred Provider Specialty Dermatology General Notes referral was faxed t [facility]. Please contact patient for scheduling.Lillie Rashida 04/03/2024 04:42:06 PM > Referral Priority Routine Reason Evaluation and manag ement Please evaluate and treat Diagnosis 1 Folliculitis decalva ns (L66.2) Referral Organization [facility] Referring Provider First Name Tanner Referring Provider Last Name Rich Referred Provider Specialty Dermatology General Notes Please call the debora ent to schedule the appointment, Encounter created and SMS sent to the pt.Jonatan Charmain 01/03/2025 04:33:54 PM > Referral Priority Routine Reason Urticaria- exercise induced Please evaluate and treat Diagnosis 1 Idiopathic urticaria (L50.1) Referral Organization [facility] Referring Provider First Name VINEC Referring Provider Last Name AGAPITO Referring Provider Speciality Internal M edicine Referred Provider Specialty Allergy/Immu nology General Notes Please call the debora ent to schedule the appointment, Encounter created and SMS sent to the pt., Zakiya Cheung 02/04/2025 04:14:47 PM > Referral Priority Routine Medications Medication SIG (Take, Route, Frequency, Duration) Notes Start Date End Date Status FreeStyle Lite - use to check blood sugar 7 times a day; Duration: 90 days 01/30/2021 Active Basaglar KwikPen 100 UNIT/ML 20 units Subcutaneous at bedtime; Duration: 30 days Not-Taking FreeStyle Lancets - as directed finger stick 7 times daily; Duration: 90 days Active Amoxicillin 500 MG 1 capsule Orally nelli ry 8 hrs; Duration: 5 days 08/17/2022 Not-Taki ng FreeStyle Lite w/Device as directed 08/17/2022 Active FreeStyle Lite Test - use to check blood sugars In Vitro 7 times a day; Duration: 90 days 01/30/2021 Active Ondansetron HCl 4 MG 1 tablet Orally twi ce a day; Duration: 30 days 09/06/2023 Not-Takin g predniSONE 20 MG 1 tablet Orally Once a day; Duration: 7 days 09/05/2023 Not-Taking Levothyroxine Sodium 25 MCG 1 tablet in the morning on an empty stomach Orally Once a day; Duration: 30 days 10/03/2023 Not-Taking Doxycycline Hyclate 100 MG 1 capsule Orally Twice a day; Duration: 7 days 09/06/2023 Not-Partha ng Famotidine 20 MG 1 tablet at bedtime as needed Orally Once a day; Duration: 30 days 01/31/2025 Active Vardenafil HCl 20 MG 1 tablet 60 minutes before sexual activity as needed Orally Once a day; Duration: 30 days 03/26/2022 Not-Takin g hydrOXYzine HCl 25 MG 1 tablet Orally On ce a day; Duration: 30 days 01/31/2025 Active Sildenafil Citrate 25 MG 1 tablet as nee ded Orally Once a day; Duration: 30 day(s) 03/29/2022 Not-Taking Breo Ellipta 100-25 MCG/ACT 1 puff Inhalation Once a day; Duration: 30 days 01/26/2023 Not-Taking Meloxicam 15 MG 1 tablet with food Orally Once a day; Duration: 30 days 04/20/2023 Not-Taking HumaLOG KwikPen 100 UNIT/ML 20 units Subcutaneous 6 times a day; Duration: 90 days 01/16/2021 Active Fexofenadine HCl 60 MG 1 tablet Orally T wice a day; Duration: 90 days 01/17/2025 Active Amoxicillin-Pot Clavulanate 875-125 MG 1 tablet Orally every 12 hrs; Duration: 7 days 12/04/2024 Not-Taking Lidocaine 5 % 2 patches to back remove after 12 hours Externally Once a day; Duration: 14 days 10/22/2021 Not-Taking FreeStyle Lancets - use to check blood sugars 7 times a day; Duration: 90 days 01/30/2021 Active tiZANidine HCl 2 MG 1 tablet as needed Orally three times daily prn pain; Duration: 10 days 10/21/2021 Not-Taking Albuterol Sulfate HFA 108 (90 Base) MCG/ACT 1 puff as needed Inhalation every 4 hrs; Duration: 30 days 01/26/2023 Active Sildenafil Citrate 50 MG 1 tablet as nee ded Orally Once a day; Duration: 30 day(s) 01/12/2022 Not-Taking Symbicort 80-4.5 MCG/ACT 1 puff as neede d Inhalation Twice a day 09/06/2023 Active Zithromax Z-Jose 250 MG as directed Orall y daily; Duration: 5 days 03/09/2022 Not-Taki ng Levothyroxine Sodium 50 MCG 1 tablet in the morning on an empty stomach Orally Once a day; Duration: 90 days Active Benzonatate 100 MG 1 capsule as needed Orally Three times a day; Duration: 7 days 03/09/2022 Not-Taking Atorvastatin Calcium 10 MG 1 tablet Orally Once a day; Duration: 90 days 09/18/2024 Active Doxepin HCl 50 MG 1 capsule at bedtime Orally Once a day; Duration: 30 day(s) 07/01/2020 Not-Taking Lantus 100 UNIT/ML 48 units as directed Subcutaneous at bedtime; Duration: 30 days 09/19/2023 Active traZODone HCl 50 MG 1 tablet at bedtime as needed Orally Once a day; Duration: 30 day(s) 06/06/2020 Not-Taking Sure Comfort Pen Zuni 32G X 4 MM as directed use to inject insulin 7 times daily; Duration: 30 days 12/21/2019 Active Nicorette 4 MG 1 piece for 30 minut e as needed Mouth/Throat 24 time(s) a day; Duration: 30 days 06/06/2020 Not-Taking Levothyroxine Sodium 25 MCG 1 tablet in the morning on an empty stomach nothing to eat or drink for 1 hour Orally Once a day; Duration: 30 days 07/02/2022 Not-Taking Immunizations Vaccine Route Administration Date Status Comme nts COVID Moderna Unknown 03/09/2021 Administered COVID Moderna Unknown 04/14/2021 Administered Fluzone High Dose 71262 IM Intramuscular 11/07/2024 Admini stered Pneumococcal conjugate PCV 13 Unknown 07/18/2018 Administered Prevnar 20 IM Intramuscular 11/07/2024 Administered Tdap Unknown 07/18/2018 Administered Social History Tobacco Use: Social History Observation Description Date Details (start date - stop date) Current Smoker NA - NA Tobacco Use/Smoking Question Answer Notes Are you a current smoker How often do you smoke cigarettes? every day How many cigarettes a day do you smoke? 5 or les s Alcohol Screen (Audit-C) Question Answer Notes Did you have a drink containing alcohol in the p ast year? No Points 0 Interpretation Negative Problems Problem Type SNOMED Code ICD Code Onset Dates Problem Status W/U Status Risk Notes Problem Hypothyroidism (81805578) Hypothyroidism, unspecified (E03.9) Active confirmed Problem Type I diabetes mellitus without complication (095480398) Type 1 diabetes mellitus without complications (E10.9) Active confirmed Problem Vitamin D deficiency (68482330) Vitamin D deficiency, unspecified (E55.9) Active confirmed Problem Tobacco user (626554168) Nicotine dependence, cigarettes, uncomplicated (F17.210) Active confirmed Problem Male erectile disorder (300622199) Male erectile disorder (F52.21) Active confirmed Problem Insomnia (651786295) Insomnia, unspecified (G47.00) Active confirmed Problem Uncomplicated mild persistent asthma (209985837) Mild persistent asthma, uncomplicated (J45.30) Active confirmed Problem Osteoarthritis of knee (628988286) Osteoarthritis of knee, unspecified (M17.9) Active confirmed Problem 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 due to other extratesticular causes (N46.129) Active confirmed Problem Male infertility (8867808) Male infertility, unspecified (N46.9) Active confirmed Problem Paresthesia (finding) (90652955) Paresthesia of skin (R20.2) Active confirmed Problem Amnesia (69068874) Other amnesia (R41.3) Active confirmed Problem Hormone abnormality (89392041) Abnormal level of hormones in specimens from other organs, systems and tissues (R89.1) Active confirmed Problem Muscle pain (11824131) Myalgia, unspecified site (M79.10) Active confirmed Problem History of disease caused by Severe acute respiratory syndrome coronavirus 2 (situation) (7561046140362471 05) Personal history of COVID-19 (Z86.16) Active confirmed Problem Hypothyroidism (89923234) TSH (thyroid-stimulati ng hormone deficiency) (E03.8) Active confirmed Problem Mixed hyperlipidemia (189554909) Combined hyperlipidemia (E78.2) Active confirmed Vital Signs Heart Rate 97 /min 01/31/2025 Temperature 97.4 degrees Fahrenheit 01/31/2025 Blood pressure diastolic 82 mm Hg 01/31/2025 Oximetry 96 % 01/31/2025 Height 68 in 01/31/2025 Blood pressure systolic 130 mm Hg 01/31/2025 Weight 232.7 lbs 01/31/2025 BMI 35.38 kg/m2 01/31/2025 Encounters Encounter Location Date Provider Diagnosis [address] [place] [address] 04/03/2024 Tanner Villanueva Type 1 diabetes mellitus without complications E10.9 ; Hypothyroidism, unspecified E03.9 and Hair loss L65.[address] [place] [address] 04/12/2024 Tanner Villanueva Type 1 diabetes mellitus without complications E10.9 and Combined hyperlipidemia E78.[address] [place] [address] 09/18/2024 VINCE ALTMAN Annual physical exam Z00.00 ; Tobacco abuse counseling Z71.6 ; Type 1 diabetes mellitus without complications E10.9 ; Hypothyroidism, unspecified E03.9 ; TSH (thyroid-stimulating hormone deficiency) E03.8 ; Nicotine dependence, cigarettes, uncomplicated F17.210 and Vitamin D deficiency, unspecified E55.[address] [place] [address] 11/02/2024 Tanner Villanueva TSH (thyroid-stimulating hormone deficiency) E03.8 ; Pain in right knee M25.561 ; Pain in left knee M25.562 and Type 1 diabetes mellitus without complications E10.9 [facility] [address] [place] [address] 11/07/2024 CLARKE VALERIOShae TSH (thyroid-stimulating hormone deficiency) E03.8 ; Pain in right knee M25.561 ; Pain in left knee M25.562 ; Type 1 diabetes mellitus without complications E10.9 ; Encounter for immunization Z23 and Vitamin D deficiency, unspecified E55.9 [facility] [address] [place] [address] 12/04/2024 Tanner Villanueva Pain in right knee M25.561 ; TSH (thyroid-stimulating hormone deficiency) E03.8 ; Pain in left knee M25.562 ; Type 1 diabetes mellitus without complications E10.9 ; Vitamin D deficiency, unspecified E55.9 ; Elevation of levels of liver transaminase levels R74.01 ; Hepatomegaly, not elsewhere classified R16.0 and Folliculitis decalvans L66.[address] [place] [address] 01/17/2025 Aroosa Alam Rash and other nonspecific skin eruption R21 and Cutaneous abscess of buttock L02.[address] [place] [address] 01/31/2025 VINCE ALTMAN Idiopathic urticaria L50.[address] [place] [address] 03/08/2024 VINCE ALTMAN [address] [place] [address] 04/03/2024 VINCE ALTMAN [address] [place] [address] 04/17/2024 Tanner Villanueva [address] [place] [address] 04/23/2024 VINCE ALTMAN Type 1 diabetes mellitus without complications E10.[address] [place] [address] 05/01/2024 CLARKE GUL [address] [place] [address] 05/09/2024 Benjaadeer Florencioloum [address] [place] [address] 05/22/2024 CLARKE GUL [address] [place] [address] 10/10/2024 CLARKE GUL Mild persistent asth ma, uncomplicated J45.[address] [place] [address] 11/01/2024 CLARKE GUL Elevation of levels of liver transaminase levels R74.[address] [place] [address] [facility] [address] [place] [address] 11/26/2024 CLARKE VALERIOL Type 1 diabetes mellitus without complications E10.[address] [place] [address] 12/07/2024 Ghadeer Florencioloum Hepatomegaly, not elsewhere classified R16.[address] [place] [address] 01/03/2025 Ghadeer Mazloum Folliculitis decalva ns L66.[address] [place] [address] 01/18/2025 Aroosa Alam Rash and other nonspecific skin eruption R21 [address] [place] [address] 02/04/2025 CLARKE VALERIOL Assessments Encounter Date Diagnosis (ICD Code) Assessment Notes Treatment Notes Treatment Clinical Notes Section Notes 01/17/2025 Rash and other nonspecific skin eruption (ICD-10 - R21) 44-year-old gentleman who was recently treated for cutaneous abscess of the buttock complete a course of Augmentin is here today complaining of intermittent skin rash Skin rash mostly allergic reaction, mostly occurs when he is at the gym it is unclear if he is exposed to some allergens or the carpeting, he was taking cetirizine without any improvement, will prescribe him Kendy 60 mg twice a day. Cutaneous buttock abscess patient reports he still feels some drainage on exam it appears to be healed there is no drainage there is no evidence of any cellulitis and no indication for antibiotics 01/18/2025 Rash and other nonspecific skin eruption (ICD-10 - R21) 01/31/2025 Idiopathic urticaria (ICD-10 - L50.1) Mahdi Wells is a 44 yr old male with pmhx of DM type 1, osteoarthritis, insomnia, vitamin D deficiency, asthma, and hypothyroidism, is here for itching all over his body when he exercise and sweat. Plan is as follows Cholinergic urticaria. He started on famotidine 10 mg along with Kendy 60 mg 1 tablet twice a day and hydroxyzine 25 mg daily at bedtime as needed. He is also given referral to dermatology. Avoid hot showers. 11/02/2024 Pain in right knee (ICD-10 - M25.561) Mahdi Wells is a 44 yr old male with pmhx of DM type 1, osteoarthritis, insomnia, vitamin D deficiency, asthma, and hypothyroidism, is here to discuss his bloodwork and bilateral knee pain. Plan as follows: Hypothyroidism: His recent TSH is mildly elevated. Currently on levothyroxine 50mcg, continue same regimen. I will repeat TSH in 4-6 weeks T1DM. A1c has improved, goal to be below 7. continue on the same regimen along with diet modification. He is UTD on eye examination. Foot care discussed.We will recheck a1c in 3 months. HLD. LDL is within goal, continue on atorvastatin 10mg at bedtime. comp was remarkable for Transminitis, U/S and hep C will be checked BL knee pain: He admits to progressive BL knee pain that worsen at rest and improve with activity. Pain involves weight bearing joints and small joint as elbow. I will r/o autoimmune disease, will obtain Xray of the knee joint. Based on the result will refer patient. As for know he can consider knee support and Curcumin. General concerns have been discussed I have rendered the services for this patient under direct supervision of Dr. Altman, who did not see the patient but was available upon request 11/02/2024 TSH (thyroid-stimulat ing hormone deficiency) (ICD-10 - E03.8) Mahdi Wells is a 44 yr old male with pmhx of DM type 1, osteoarthritis, insomnia, vitamin D deficiency, asthma, and hypothyroidism, is here to discuss his bloodwork and bilateral knee pain. Plan as follows: Hypothyroidism: His recent TSH is mildly elevated. Currently on levothyroxine 50mcg, continue same regimen. I will repeat TSH in 4-6 weeks T1DM. A1c has improved, goal to be below 7. continue on the same regimen along with diet modification. He is UTD on eye examination. Foot care discussed.We will recheck a1c in 3 months. HLD. LDL is within goal, continue on atorvastatin 10mg at bedtime. comp was remarkable for Transminitis, U/S and hep C will be checked BL knee pain: He admits to progressive BL knee pain that worsen at rest and improve with activity. Pain involves weight bearing joints and small joint as elbow. I will r/o autoimmune disease, will obtain Xray of the knee joint. Based on the result will refer patient. As for know he can consider knee support and Curcumin. General concerns have been discussed I have rendered the services for this patient under direct supervision of Dr. Altman, who did not see the patient but was available upon request 11/07/2024 TSH (thyroid-stimulat ing hormone deficiency) (ICD-10 - E03.8) Mahdi Wells is a 44 yr old male with pmhx of DM type 1, osteoarthritis, insomnia, vitamin D deficiency, asthma, and hypothyroidism, is here to discuss his bloodwork and bilateral knee pain. Plan as follows: Hypothyroidism: His recent TSH is mildly elevated. Currently on levothyroxine 50mcg, continue same regimen. I will repeat TSH in 4-6 weeks T1DM. A1c has improved, goal to be below 7. continue on the same regimen along with diet modification. He is UTD on eye examination. Foot care discussed.We will recheck a1c in 3 months. HLD. LDL is within goal, continue on atorvastatin 10mg at bedtime. comp was remarkable for Transminitis, U/S and hep C will be checked BL knee pain: He admits to progressive BL knee pain that worsen at rest and improve with activity. x-rays of the knee joints were within reasonable limits and rheumatological workup was negative. We suggested to stop statins for couple weeks and observe. Vitamin D deficiency. His vitamin D is 41 and he can take vitamin D3 1000 international units 3-4 times a week for maintenance. As for know he can consider knee support and Curcumin. General concerns have been discussed 11/26/2024 Type 1 diabetes mellitus without complications (ICD-10 - E10.9) 11/07/2024 Pain in right knee (ICD-10 - M25.561) Mahdi Wells is a 44 yr old male with pmhx of DM type 1, osteoarthritis, insomnia, vitamin D deficiency, asthma, and hypothyroidism, is here to discuss his bloodwork and bilateral knee pain. Plan as follows: Hypothyroidism: His recent TSH is mildly elevated. Currently on levothyroxine 50mcg, continue same regimen. I will repeat TSH in 4-6 weeks T1DM. A1c has improved, goal to be below 7. continue on the same regimen along with diet modification. He is UTD on eye examination. Foot care discussed.We will recheck a1c in 3 months. HLD. LDL is within goal, continue on atorvastatin 10mg at bedtime. comp was remarkable for Transminitis, U/S and hep C will be checked BL knee pain: He admits to progressive BL knee pain that worsen at rest and improve with activity. x-rays of the knee joints were within reasonable limits and rheumatological workup was negative. We suggested to stop statins for couple weeks and observe. Vitamin D deficiency. His vitamin D is 41 and he can take vitamin D3 1000 international units 3-4 times a week for maintenance. As for know he can consider knee support and Curcumin. General concerns have been discussed 12/04/2024 Pain in right knee (ICD-10 - M25.561) Mahdi Wells is a 44 yr old male with PMHx of DM type 1, osteoarthritis, insomnia, vitamin D deficiency, asthma, and hypothyroidism, is here to discuss his bloodwork and bilateral knee pain. Plan as follows: Hypothyroidism: His recent TSH is mildly elevated. Currently, on levothyroxine 50mcg, continue same regimen. I will repeat TSH in 4-6 weeks T1DM. A1c has improved, goal to be below 7. Continue on the same regimen along with diet modification. He is UTD on eye examination. Foot care discussed.We will recheck a1c in 3 months. HLD/Transaminitis. LDL is within goal, Atorvastatin 10 mg is currently on hold, elevated LFTs we will recheck levels. He also recently had an ultrasound showing multiple benign cysts and an absence of malignancy, however admit show large liver compared to previous study done back in 2021, recommendation is to follow-up with an MRI. Order on the right of the abdomen without contrast. If LFTs are elevated despite not being honest and then possible this elevation is not due to the Chris medication however most likely it is driven by the supplements that he does consume for bodybuilding. BL knee pain: He admits to progressive BL knee pain that worsen at rest and improve with activity. x-rays of the knee joints were within reasonable limits and rheumatological workup was negative.No improvement with statin medication on hold, referred patient to orthopedic for further management and evaluation to rule out any torn ligament. Folliculitis. I have started patient on Augmentin, advised on warm compresses, he can also consider antibiotic cream as well General concerns have been discussed 12/04/2024 TSH (thyroid-stimulat ing hormone deficiency) (ICD-10 - E03.8) Mahdi Wells is a 44 yr old male with PMHx of DM type 1, osteoarthritis, insomnia, vitamin D deficiency, asthma, and hypothyroidism, is here to discuss his bloodwork and bilateral knee pain. Plan as follows: Hypothyroidism: His recent TSH is mildly elevated. Currently, on levothyroxine 50mcg, continue same regimen. I will repeat TSH in 4-6 weeks T1DM. A1c has improved, goal to be below 7. Continue on the same regimen along with diet modification. He is UTD on eye examination. Foot care discussed.We will recheck a1c in 3 months. HLD/Transaminitis. LDL is within goal, Atorvastatin 10 mg is currently on hold, elevated LFTs we will recheck levels. He also recently had an ultrasound showing multiple benign cysts and an absence of malignancy, however admit show large liver compared to previous study done back in 2021, recommendation is to follow-up with an MRI. Order on the right of the abdomen without contrast. If LFTs are elevated despite not being honest and then possible this elevation is not due to the Chris medication however most likely it is driven by the supplements that he does consume for bodybuilding. BL knee pain: He admits to progressive BL knee pain that worsen at rest and improve with activity. x-rays of the knee joints were within reasonable limits and rheumatological workup was negative.No improvement with statin medication on hold, referred patient to orthopedic for further management and evaluation to rule out any torn ligament. Folliculitis. I have started patient on Augmentin, advised on warm compresses, he can also consider antibiotic cream as well General concerns have been discussed 12/07/2024 Hepatomegaly, not elsewhere classified (ICD-10 - R16.0) 01/03/2025 Folliculitis decalvans (ICD-10 - L66.2) 01/17/2025 Cutaneous abscess of buttock (ICD-10 - L02.31) 44-year-old gentleman who was recently treated for cutaneous abscess of the buttock complete a course of Augmentin is here today complaining of intermittent skin rash Skin rash mostly allergic reaction, mostly occurs when he is at the gym it is unclear if he is exposed to some allergens or the carpeting, he was taking cetirizine without any improvement, will prescribe him Kendy 60 mg twice a day. Cutaneous buttock abscess patient reports he still feels some drainage on exam it appears to be healed there is no drainage there is no evidence of any cellulitis and no indication for antibiotics 04/03/2024 Hypothyroidism, unspecified (ICD-10 - E03.9) Mahdi Wells is a 44 yr old male with pmhx of DM type 1, osteoarthritis, insomnia, vitamin D deficiency, asthma, and hypothyroidism, is here To discuss Getting new blood work to check on his diabetes, Kidney function, liver function. Plan as follows: T1DM: - He is currently on Lantus 22units. He is also on Humalog sliding scale. Previous a1c of 7.7 goal below 7. FBG goal below 130, post prandial below 180. He is to increase lantus 2-3units every 3 days to reach goal. Diet modification discussed. He follows with opthalm. Foot care discussed. Check a1c check lipid panel, comp, and microalbumin Hypothyroidism: - Recent TSH is within normal limit. Continue on the same regimen. Hair loss: - Advised on taking Biotin, zinc and use minoxidil for hair growth. Referred patient to dermatology for further management including possible PRP treatment. screening bloodwork before next appt. He is to schedule an appt for lab discussion General concerns have been discussed I have rendered the services for this patient under direct supervision of Dr. Altman, who did not see the patient but was available upon request 04/03/2024 Type 1 diabetes mellitus without complications (ICD-10 - E10.9) Mahdi Wells is a 44 yr old male with pmhx of DM type 1, osteoarthritis, insomnia, vitamin D deficiency, asthma, and hypothyroidism, is here To discuss Getting new blood work to check on his diabetes, Kidney function, liver function. Plan as follows: T1DM: - He is currently on Lantus 22units. He is also on Humalog sliding scale. Previous a1c of 7.7 goal below 7. FBG goal below 130, post prandial below 180. He is to increase lantus 2-3units every 3 days to reach goal. Diet modification discussed. He follows with opthalm. Foot care discussed. Check a1c check lipid panel, comp, and microalbumin Hypothyroidism: - Recent TSH is within normal limit. Continue on the same regimen. Hair loss: - Advised on taking Biotin, zinc and use minoxidil for hair growth. Referred patient to dermatology for further management including possible PRP treatment. screening bloodwork before next appt. He is to schedule an appt for lab discussion General concerns have been discussed I have rendered the services for this patient under direct supervision of Dr. Altman, who did not see the patient but was available upon request 04/12/2024 Type 1 diabetes mellitus without complications (ICD-10 - E10.9) Mahdi Wells is a 44 yr old male with pmhx of DM type 1, osteoarthritis, insomnia, vitamin D deficiency, asthma, and hypothyroidism, is here To discuss His recent bloodwork. Blunted follows Type 1 diabetes - Recent A1c is remarkable to be 9.7 previously was 7.7. He admits to being noncompliant with diet and was misusing the Lantus. I have advised patient on diet modification with reducing the carb intake and sugars. Frequent small portions of meals throughout the day is recommended to avoid any hypoglycemic events. Educated patient on proper usage of Humalog to be used before each meal with a sliding scale. Lantus to be taken at night and to increase to 3 units every 3 days to reach goal of fasting blood glucose below 130 and postprandial below 180. - He does follow with eye doctor on a regular basis. Foot care discussed. We will check A1c in 3 months Combined hyperlipidemia - Recent LDL of 96, I have advised patient that the goal of LDL to be 70 or below best I have started patient on low-dose statin. Possible side effects have been discussed. Medication to be taken at bedtime. Diet modification recommended. Check lipid panel in 6 weeks. Hypothyroidism - Recent TSH is within normal limits. Continue on levothyroxine 50 mg. To be taken on an empty stomach in the morning 1 hour before having a meal. I have rendered the services for this patient under direct supervision of Dr. Altman, who did not see the patient but was available upon request 04/12/2024 Combined hyperlipidemia (ICD-10 - E78.2) Mahdi Wells is a 44 yr old male with pmhx of DM type 1, osteoarthritis, insomnia, vitamin D deficiency, asthma, and hypothyroidism, is here To discuss His recent bloodwork. Blunted follows Type 1 diabetes - Recent A1c is remarkable to be 9.7 previously was 7.7. He admits to being noncompliant with diet and was misusing the Lantus. I have advised patient on diet modification with reducing the carb intake and sugars. Frequent small portions of meals throughout the day is recommended to avoid any hypoglycemic events. Educated patient on proper usage of Humalog to be used before each meal with a sliding scale. Lantus to be taken at night and to increase to 3 units every 3 days to reach goal of fasting blood glucose below 130 and postprandial below 180. - He does follow with eye doctor on a regular basis. Foot care discussed. We will check A1c in 3 months Combined hyperlipidemia - Recent LDL of 96, I have advised patient that the goal of LDL to be 70 or below best I have started patient on low-dose statin. Possible side effects have been discussed. Medication to be taken at bedtime. Diet modification recommended. Check lipid panel in 6 weeks. Hypothyroidism - Recent TSH is within normal limits. Continue on levothyroxine 50 mg. To be taken on an empty stomach in the morning 1 hour before having a meal. I have rendered the services for this patient under direct supervision of Dr. Altman, who did not see the patient but was available upon request 04/23/2024 Type 1 diabetes mellitus without complications (ICD-10 - E10.9) 09/18/2024 Tobacco abuse counseling (ICD-10 - Z71.6) Russell is 44 years old gentleman with diabetes mellitus type 1, hypothyroidism, nicotine dependence, vitamin D deficiency is here today for annual physical. Plan is as follows Diabetes mellitus type 1. He is currently on Lantus 35 units and he is also doing Humalog. His last A1c was 9.7 which was high. We will recheck A1c and adjust medications accordingly. He is on atorvastatin 10 mg daily and recheck lipid panel. Hypothyroidism. His TSH was 6.05. Recheck TSH/T4 and if needed we will adjust levothyroxine. Nicotine dependence. Advised abstinence. He is smoking almost a pack a day. Different modalities discussed. Vitamin D deficiency. Continue vitamin D supplements and check vitamin D levels. Screening blood work ordered 09/18/2024 Annual physical exam (ICD-10 - Z00.00) Russell is 44 years old gentleman with diabetes mellitus type 1, hypothyroidism, nicotine dependence, vitamin D deficiency is here today for annual physical. Plan is as follows Diabetes mellitus type 1. He is currently on Lantus 35 units and he is also doing Humalog. His last A1c was 9.7 which was high. We will recheck A1c and adjust medications accordingly. He is on atorvastatin 10 mg daily and recheck lipid panel. Hypothyroidism. His TSH was 6.05. Recheck TSH/T4 and if needed we will adjust levothyroxine. Nicotine dependence. Advised abstinence. He is smoking almost a pack a day. Different modalities discussed. Vitamin D deficiency. Continue vitamin D supplements and check vitamin D levels. Screening blood work ordered 10/10/2024 Mild persistent asthma, uncomplicated (ICD-10 - J45.30) 11/01/2024 Elevation of levels of liver transaminase levels (ICD-10 - R74.01) 09/18/2024 Type 1 diabetes mellitus without complications (ICD-10 - E10.9) Russell is 44 years old gentleman with diabetes mellitus type 1, hypothyroidism, nicotine dependence, vitamin D deficiency is here today for annual physical. Plan is as follows Diabetes mellitus type 1. He is currently on Lantus 35 units and he is also doing Humalog. His last A1c was 9.7 which was high. We will recheck A1c and adjust medications accordingly. He is on atorvastatin 10 mg daily and recheck lipid panel. Hypothyroidism. His TSH was 6.05. Recheck TSH/T4 and if needed we will adjust levothyroxine. Nicotine dependence. Advised abstinence. He is smoking almost a pack a day. Different modalities discussed. Vitamin D deficiency. Continue vitamin D supplements and check vitamin D levels. Screening blood work ordered 04/03/2024 Hair loss (ICD-10 - L65.9) Mahdi Wells is a 44 yr old male with pmhx of DM type 1, osteoarthritis, insomnia, vitamin D deficiency, asthma, and hypothyroidism, is here To discuss Getting new blood work to check on his diabetes, Kidney function, liver function. Plan as follows: T1DM: - He is currently on Lantus 22units. He is also on Humalog sliding scale. Previous a1c of 7.7 goal below 7. FBG goal below 130, post prandial below 180. He is to increase lantus 2-3units every 3 days to reach goal. Diet modification discussed. He follows with opthalm. Foot care discussed. Check a1c check lipid panel, comp, and microalbumin Hypothyroidism: - Recent TSH is within normal limit. Continue on the same regimen. Hair loss: - Advised on taking Biotin, zinc and use minoxidil for hair growth. Referred patient to dermatology for further management including possible PRP treatment. screening bloodwork before next appt. He is to schedule an appt for lab discussion General concerns have been discussed I have rendered the services for this patient under direct supervision of Dr. Altman, who did not see the patient but was available upon request 12/04/2024 Pain in left knee (ICD-10 - M25.562) Mahdi Wells is a 44 yr old male with PMHx of DM type 1, osteoarthritis, insomnia, vitamin D deficiency, asthma, and hypothyroidism, is here to discuss his bloodwork and bilateral knee pain. Plan as follows: Hypothyroidism: His recent TSH is mildly elevated. Currently, on levothyroxine 50mcg, continue same regimen. I will repeat TSH in 4-6 weeks T1DM. A1c has improved, goal to be below 7. Continue on the same regimen along with diet modification. He is UTD on eye examination. Foot care discussed.We will recheck a1c in 3 months. HLD/Transaminitis. LDL is within goal, Atorvastatin 10 mg is currently on hold, elevated LFTs we will recheck levels. He also recently had an ultrasound showing multiple benign cysts and an absence of malignancy, however admit show large liver compared to previous study done back in 2021, recommendation is to follow-up with an MRI. Order on the right of the abdomen without contrast. If LFTs are elevated despite not being honest and then possible this elevation is not due to the Chris medication however most likely it is driven by the supplements that he does consume for bodybuilding. BL knee pain: He admits to progressive BL knee pain that worsen at rest and improve with activity. x-rays of the knee joints were within reasonable limits and rheumatological workup was negative.No improvement with statin medication on hold, referred patient to orthopedic for further management and evaluation to rule out any torn ligament. Folliculitis. I have started patient on Augmentin, advised on warm compresses, he can also consider antibiotic cream as well General concerns have been discussed 11/07/2024 Pain in left knee (ICD-10 - M25.562) Mahdi Wells is a 44 yr old male with pmhx of DM type 1, osteoarthritis, insomnia, vitamin D deficiency, asthma, and hypothyroidism, is here to discuss his bloodwork and bilateral knee pain. Plan as follows: Hypothyroidism: His recent TSH is mildly elevated. Currently on levothyroxine 50mcg, continue same regimen. I will repeat TSH in 4-6 weeks T1DM. A1c has improved, goal to be below 7. continue on the same regimen along with diet modification. He is UTD on eye examination. Foot care discussed.We will recheck a1c in 3 months. HLD. LDL is within goal, continue on atorvastatin 10mg at bedtime. comp was remarkable for Transminitis, U/S and hep C will be checked BL knee pain: He admits to progressive BL knee pain that worsen at rest and improve with activity. x-rays of the knee joints were within reasonable limits and rheumatological workup was negative. We suggested to stop statins for couple weeks and observe. Vitamin D deficiency. His vitamin D is 41 and he can take vitamin D3 1000 international units 3-4 times a week for maintenance. As for know he can consider knee support and Curcumin. General concerns have been discussed 11/02/2024 Pain in left knee (ICD-10 - M25.562) Mahdi Wells is a 44 yr old male with pmhx of DM type 1, osteoarthritis, insomnia, vitamin D deficiency, asthma, and hypothyroidism, is here to discuss his bloodwork and bilateral knee pain. Plan as follows: Hypothyroidism: His recent TSH is mildly elevated. Currently on levothyroxine 50mcg, continue same regimen. I will repeat TSH in 4-6 weeks T1DM. A1c has improved, goal to be below 7. continue on the same regimen along with diet modification. He is UTD on eye examination. Foot care discussed.We will recheck a1c in 3 months. HLD. LDL is within goal, continue on atorvastatin 10mg at bedtime. comp was remarkable for Transminitis, U/S and hep C will be checked BL knee pain: He admits to progressive BL knee pain that worsen at rest and improve with activity. Pain involves weight bearing joints and small joint as elbow. I will r/o autoimmune disease, will obtain Xray of the knee joint. Based on the result will refer patient. As for know he can consider knee support and Curcumin. General concerns have been discussed I have rendered the services for this patient under direct supervision of Dr. Altman, who did not see the patient but was available upon request 11/07/2024 Type 1 diabetes mellitus without complications (ICD-10 - E10.9) Mahdi Wells is a 44 yr old male with pmhx of DM type 1, osteoarthritis, insomnia, vitamin D deficiency, asthma, and hypothyroidism, is here to discuss his bloodwork and bilateral knee pain. Plan as follows: Hypothyroidism: His recent TSH is mildly elevated. Currently on levothyroxine 50mcg, continue same regimen. I will repeat TSH in 4-6 weeks T1DM. A1c has improved, goal to be below 7. continue on the same regimen along with diet modification. He is UTD on eye examination. Foot care discussed.We will recheck a1c in 3 months. HLD. LDL is within goal, continue on atorvastatin 10mg at bedtime. comp was remarkable for Transminitis, U/S and hep C will be checked BL knee pain: He admits to progressive BL knee pain that worsen at rest and improve with activity. x-rays of the knee joints were within reasonable limits and rheumatological workup was negative. We suggested to stop statins for couple weeks and observe. Vitamin D deficiency. His vitamin D is 41 and he can take vitamin D3 1000 international units 3-4 times a week for maintenance. As for know he can consider knee support and Curcumin. General concerns have been discussed 12/04/2024 Type 1 diabetes mellitus without complications (ICD-10 - E10.9) Mahdi Wells is a 44 yr old male with PMHx of DM type 1, osteoarthritis, insomnia, vitamin D deficiency, asthma, and hypothyroidism, is here to discuss his bloodwork and bilateral knee pain. Plan as follows: Hypothyroidism: His recent TSH is mildly elevated. Currently, on levothyroxine 50mcg, continue same regimen. I will repeat TSH in 4-6 weeks T1DM. A1c has improved, goal to be below 7. Continue on the same regimen along with diet modification. He is UTD on eye examination. Foot care discussed.We will recheck a1c in 3 months. HLD/Transaminitis. LDL is within goal, Atorvastatin 10 mg is currently on hold, elevated LFTs we will recheck levels. He also recently had an ultrasound showing multiple benign cysts and an absence of malignancy, however admit show large liver compared to previous study done back in 2021, recommendation is to follow-up with an MRI. Order on the right of the abdomen without contrast. If LFTs are elevated despite not being honest and then possible this elevation is not due to the Chris medication however most likely it is driven by the supplements that he does consume for bodybuilding. BL knee pain: He admits to progressive BL knee pain that worsen at rest and improve with activity. x-rays of the knee joints were within reasonable limits and rheumatological workup was negative.No improvement with statin medication on hold, referred patient to orthopedic for further management and evaluation to rule out any torn ligament. Folliculitis. I have started patient on Augmentin, advised on warm compresses, he can also consider antibiotic cream as well General concerns have been discussed 09/18/2024 Hypothyroidism, unspecified (ICD-10 - E03.9) Russell is 44 years old gentleman with diabetes mellitus type 1, hypothyroidism, nicotine dependence, vitamin D deficiency is here today for annual physical. Plan is as follows Diabetes mellitus type 1. He is currently on Lantus 35 units and he is also doing Humalog. His last A1c was 9.7 which was high. We will recheck A1c and adjust medications accordingly. He is on atorvastatin 10 mg daily and recheck lipid panel. Hypothyroidism. His TSH was 6.05. Recheck TSH/T4 and if needed we will adjust levothyroxine. Nicotine dependence. Advised abstinence. He is smoking almost a pack a day. Different modalities discussed. Vitamin D deficiency. Continue vitamin D supplements and check vitamin D levels. Screening blood work ordered 11/02/2024 Type 1 diabetes mellitus without complications (ICD-10 - E10.9) Mahdi Wells is a 44 yr old male with pmhx of DM type 1, osteoarthritis, insomnia, vitamin D deficiency, asthma, and hypothyroidism, is here to discuss his bloodwork and bilateral knee pain. Plan as follows: Hypothyroidism: His recent TSH is mildly elevated. Currently on levothyroxine 50mcg, continue same regimen. I will repeat TSH in 4-6 weeks T1DM. A1c has improved, goal to be below 7. continue on the same regimen along with diet modification. He is UTD on eye examination. Foot care discussed.We will recheck a1c in 3 months. HLD. LDL is within goal, continue on atorvastatin 10mg at bedtime. comp was remarkable for Transminitis, U/S and hep C will be checked BL knee pain: He admits to progressive BL knee pain that worsen at rest and improve with activity. Pain involves weight bearing joints and small joint as elbow. I will r/o autoimmune disease, will obtain Xray of the knee joint. Based on the result will refer patient. As for know he can consider knee support and Curcumin. General concerns have been discussed I have rendered the services for this patient under direct supervision of Dr. Altman, who did not see the patient but was available upon request 09/18/2024 TSH (thyroid-stimulat ing hormone deficiency) (ICD-10 - E03.8) Russell is 44 years old gentleman with diabetes mellitus type 1, hypothyroidism, nicotine dependence, vitamin D deficiency is here today for annual physical. Plan is as follows Diabetes mellitus type 1. He is currently on Lantus 35 units and he is also doing Humalog. His last A1c was 9.7 which was high. We will recheck A1c and adjust medications accordingly. He is on atorvastatin 10 mg daily and recheck lipid panel. Hypothyroidism. His TSH was 6.05. Recheck TSH/T4 and if needed we will adjust levothyroxine. Nicotine dependence. Advised abstinence. He is smoking almost a pack a day. Different modalities discussed. Vitamin D deficiency. Continue vitamin D supplements and check vitamin D levels. Screening blood work ordered 12/04/2024 Vitamin D deficiency, unspecified (ICD-10 - E55.9) Mahdi Wells is a 44 yr old male with PMHx of DM type 1, osteoarthritis, insomnia, vitamin D deficiency, asthma, and hypothyroidism, is here to discuss his bloodwork and bilateral knee pain. Plan as follows: Hypothyroidism: His recent TSH is mildly elevated. Currently, on levothyroxine 50mcg, continue same regimen. I will repeat TSH in 4-6 weeks T1DM. A1c has improved, goal to be below 7. Continue on the same regimen along with diet modification. He is UTD on eye examination. Foot care discussed.We will recheck a1c in 3 months. HLD/Transaminitis. LDL is within goal, Atorvastatin 10 mg is currently on hold, elevated LFTs we will recheck levels. He also recently had an ultrasound showing multiple benign cysts and an absence of malignancy, however admit show large liver compared to previous study done back in 2021, recommendation is to follow-up with an MRI. Order on the right of the abdomen without contrast. If LFTs are elevated despite not being honest and then possible this elevation is not due to the Chris medication however most likely it is driven by the supplements that he does consume for bodybuilding. BL knee pain: He admits to progressive BL knee pain that worsen at rest and improve with activity. x-rays of the knee joints were within reasonable limits and rheumatological workup was negative.No improvement with statin medication on hold, referred patient to orthopedic for further management and evaluation to rule out any torn ligament. Folliculitis. I have started patient on Augmentin, advised on warm compresses, he can also consider antibiotic cream as well General concerns have been discussed 11/07/2024 Encounter for immunization (ICD-10 - Z23) Mahdi Wells is a 44 yr old male with pmhx of DM type 1, osteoarthritis, insomnia, vitamin D deficiency, asthma, and hypothyroidism, is here to discuss his bloodwork and bilateral knee pain. Plan as follows: Hypothyroidism: His recent TSH is mildly elevated. Currently on levothyroxine 50mcg, continue same regimen. I will repeat TSH in 4-6 weeks T1DM. A1c has improved, goal to be below 7. continue on the same regimen along with diet modification. He is UTD on eye examination. Foot care discussed.We will recheck a1c in 3 months. HLD. LDL is within goal, continue on atorvastatin 10mg at bedtime. comp was remarkable for Transminitis, U/S and hep C will be checked BL knee pain: He admits to progressive BL knee pain that worsen at rest and improve with activity. x-rays of the knee joints were within reasonable limits and rheumatological workup was negative. We suggested to stop statins for couple weeks and observe. Vitamin D deficiency. His vitamin D is 41 and he can take vitamin D3 1000 international units 3-4 times a week for maintenance. As for know he can consider knee support and Curcumin. General concerns have been discussed 09/18/2024 Nicotine dependence, cigarettes, uncomplicated (ICD-10 - F17.210) Russell is 44 years old gentleman with diabetes mellitus type 1, hypothyroidism, nicotine dependence, vitamin D deficiency is here today for annual physical. Plan is as follows Diabetes mellitus type 1. He is currently on Lantus 35 units and he is also doing Humalog. His last A1c was 9.7 which was high. We will recheck A1c and adjust medications accordingly. He is on atorvastatin 10 mg daily and recheck lipid panel. Hypothyroidism. His TSH was 6.05. Recheck TSH/T4 and if needed we will adjust levothyroxine. Nicotine dependence. Advised abstinence. He is smoking almost a pack a day. Different modalities discussed. Vitamin D deficiency. Continue vitamin D supplements and check vitamin D levels. Screening blood work ordered 12/04/2024 Elevation of levels of liver transaminase levels (ICD-10 - R74.01) Mahdi Wells is a 44 yr old male with PMHx of DM type 1, osteoarthritis, insomnia, vitamin D deficiency, asthma, and hypothyroidism, is here to discuss his bloodwork and bilateral knee pain. Plan as follows: Hypothyroidism: His recent TSH is mildly elevated. Currently, on levothyroxine 50mcg, continue same regimen. I will repeat TSH in 4-6 weeks T1DM. A1c has improved, goal to be below 7. Continue on the same regimen along with diet modification. He is UTD on eye examination. Foot care discussed.We will recheck a1c in 3 months. HLD/Transaminitis. LDL is within goal, Atorvastatin 10 mg is currently on hold, elevated LFTs we will recheck levels. He also recently had an ultrasound showing multiple benign cysts and an absence of malignancy, however admit show large liver compared to previous study done back in 2021, recommendation is to follow-up with an MRI. Order on the right of the abdomen without contrast. If LFTs are elevated despite not being honest and then possible this elevation is not due to the Chris medication however most likely it is driven by the supplements that he does consume for bodybuilding. BL knee pain: He admits to progressive BL knee pain that worsen at rest and improve with activity. x-rays of the knee joints were within reasonable limits and rheumatological workup was negative.No improvement with statin medication on hold, referred patient to orthopedic for further management and evaluation to rule out any torn ligament. Folliculitis. I have started patient on Augmentin, advised on warm compresses, he can also consider antibiotic cream as well General concerns have been discussed 11/07/2024 Vitamin D deficiency, unspecified (ICD-10 - E55.9) Mahdi Wells is a 44 yr old male with pmhx of DM type 1, osteoarthritis, insomnia, vitamin D deficiency, asthma, and hypothyroidism, is here to discuss his bloodwork and bilateral knee pain. Plan as follows: Hypothyroidism: His recent TSH is mildly elevated. Currently on levothyroxine 50mcg, continue same regimen. I will repeat TSH in 4-6 weeks T1DM. A1c has improved, goal to be below 7. continue on the same regimen along with diet modification. He is UTD on eye examination. Foot care discussed.We will recheck a1c in 3 months. HLD. LDL is within goal, continue on atorvastatin 10mg at bedtime. comp was remarkable for Transminitis, U/S and hep C will be checked BL knee pain: He admits to progressive BL knee pain that worsen at rest and improve with activity. x-rays of the knee joints were within reasonable limits and rheumatological workup was negative. We suggested to stop statins for couple weeks and observe. Vitamin D deficiency. His vitamin D is 41 and he can take vitamin D3 1000 international units 3-4 times a week for maintenance. As for know he can consider knee support and Curcumin. General concerns have been discussed 12/04/2024 Hepatomegaly, not elsewhere classified (ICD-10 - R16.0) Mahdi Wells is a 44 yr old male with PMHx of DM type 1, osteoarthritis, insomnia, vitamin D deficiency, asthma, and hypothyroidism, is here to discuss his bloodwork and bilateral knee pain. Plan as follows: Hypothyroidism: His recent TSH is mildly elevated. Currently, on levothyroxine 50mcg, continue same regimen. I will repeat TSH in 4-6 weeks T1DM. A1c has improved, goal to be below 7. Continue on the same regimen along with diet modification. He is UTD on eye examination. Foot care discussed.We will recheck a1c in 3 months. HLD/Transaminitis. LDL is within goal, Atorvastatin 10 mg is currently on hold, elevated LFTs we will recheck levels. He also recently had an ultrasound showing multiple benign cysts and an absence of malignancy, however admit show large liver compared to previous study done back in 2021, recommendation is to follow-up with an MRI. Order on the right of the abdomen without contrast. If LFTs are elevated despite not being honest and then possible this elevation is not due to the Chris medication however most likely it is driven by the supplements that he does consume for bodybuilding. BL knee pain: He admits to progressive BL knee pain that worsen at rest and improve with activity. x-rays of the knee joints were within reasonable limits and rheumatological workup was negative.No improvement with statin medication on hold, referred patient to orthopedic for further management and evaluation to rule out any torn ligament. Folliculitis. I have started patient on Augmentin, advised on warm compresses, he can also consider antibiotic cream as well General concerns have been discussed 09/18/2024 Vitamin D deficiency, unspecified (ICD-10 - E55.9) Russell is 44 years old gentleman with diabetes mellitus type 1, hypothyroidism, nicotine dependence, vitamin D deficiency is here today for annual physical. Plan is as follows Diabetes mellitus type 1. He is currently on Lantus 35 units and he is also doing Humalog. His last A1c was 9.7 which was high. We will recheck A1c and adjust medications accordingly. He is on atorvastatin 10 mg daily and recheck lipid panel. Hypothyroidism. His TSH was 6.05. Recheck TSH/T4 and if needed we will adjust levothyroxine. Nicotine dependence. Advised abstinence. He is smoking almost a pack a day. Different modalities discussed. Vitamin D deficiency. Continue vitamin D supplements and check vitamin D levels. Screening blood work ordered 12/04/2024 Folliculitis jellyalvans (ICD-10 - L66.2) Mahdi Wells is a 44 yr old male with PMHx of DM type 1, osteoarthritis, insomnia, vitamin D deficiency, asthma, and hypothyroidism, is here to discuss his bloodwork and bilateral knee pain. Plan as follows: Hypothyroidism: His recent TSH is mildly elevated. Currently, on levothyroxine 50mcg, continue same regimen. I will repeat TSH in 4-6 weeks T1DM. A1c has improved, goal to be below 7. Continue on the same regimen along with diet modification. He is UTD on eye examination. Foot care discussed.We will recheck a1c in 3 months. HLD/Transaminitis. LDL is within goal, Atorvastatin 10 mg is currently on hold, elevated LFTs we will recheck levels. He also recently had an ultrasound showing multiple benign cysts and an absence of malignancy, however admit show large liver compared to previous study done back in 2021, recommendation is to follow-up with an MRI. Order on the right of the abdomen without contrast. If LFTs are elevated despite not being honest and then possible this elevation is not due to the Chris medication however most likely it is driven by the supplements that he does consume for bodybuilding. BL knee pain: He admits to progressive BL knee pain that worsen at rest and improve with activity. x-rays of the knee joints were within reasonable limits and rheumatological workup was negative.No improvement with statin medication on hold, referred patient to orthopedic for further management and evaluation to rule out any torn ligament. Folliculitis. I have started patient on Augmentin, advised on warm compresses, he can also consider antibiotic cream as well General concerns have been discussed Plan Of Treatment Pending Test Test Name Order Date MRI : Abdomen without Contrast MRI : Abdomen with and without Contrast 12/07/2024 Pulmonary Function Test 01/26/2023 BASIC METABOLIC PANEL 08/25/2022 CKMB CONFIRMATION 03/01/2022 CKMB CONFIRMATION 03/08/2022 COMPREHENSIVE METABOLIC PANEL 03/08/2022 COMPREHENSIVE METABOLIC PANEL 03/01/2022 CREATINE, SERUM 10/20/2021 HEMOGLOBIN A1C WITH EST GLUCOSE 03/09/19 LIPID PANEL 08/25/2022 MICROALBUMIN, URINE 08/25/2022 TESTOSTERONE, FREE AND TOTAL (MALES >15 YRS OLD) 09/14/2022 TSH WITH REFLEX TO FT4 03/09/2022 TSH WITH REFLEX TO FT4 07/02/2022 US Liver 11/01/2024 Xray: Knee Left (Standard, 4 Views) 06/2024 Xray: Knee Right (Standard, 4 Views) 06/2024 UA W/REFLEX MICROSCOPIC & CULTURE 2021 AST (SGOT)-[id number] 12/04/2024 Hemoglobin F4y-[id number] 04/12/2024 ALT (SGPT)-359809 12/04/2024 Sedimentation Nhrs-Ihgremlffz-587014 06/2024 Rheumatoid Factor (RF)-814673 11/02/2024 Hepatitis B Surf Ab Quant-[id number] C-Reactive Protein, Quant-[id number] 025 Hep A Ab, Total-[id number] 11/01/2024 Iodine, Serum or Plasma-[id number] 4 CBC/Differential (No Platelet)-435764 Creatine Kinase (CK), MB-[id number] 09/26/19 24 HCV Antibody RFX to Quant PCR-[id number] 05/2024 Anti-CCP Ab, IgG/IgA-437330 11/02/2024 Lipid Panel-[id number] 04/12/2024 Comp. Metabolic Panel [id number] 2024 Comp. Metabolic Panel [id number] 2023 YOGI 12 Plus Profile (RDL)-[id number] Future Test Test Name Order Date Hemoglobin D4m-[id number] 11/07/2024 TSH+Free [id number] 11/07/2024 Next Appt Details Provider Name:VINCE ALTMAN , 03/21/2025 09:45:00 AM, [address] [place] [address], [place], [address], Insurance Providers Payer Name Payer Address Payer Phone Subscriber Number Group Number Insured Name Patient Relationship to Insured Coverage Start Date Coverage End Date [facility]) [address] [address] [place] [address] [id number] Russell Stafford Self - patient is the insured Medical (General) History Medical History History ICD Code DM type I Nicotine dependence Low back pain and sees physiatry Reticular veins bilateral lower extremit ies Personal history of COVID-19 liver hemangioma rhabdomyolysis IVY 2021 Testicular hypofunction
--- OUTSIDE RECORDS SUMMARY | 2025-02-26 20:37 | XMS_ITS | Clinical Summary ---
Author Organization [facility] ity Address [address] [place] [address] Care Team Providers Care Human Resources Communications Manager Name Role Phone Jaimee Kwan MD Primary Care Provider [phone] Social History Tobacco Use Types Packs/Day Years Used Date Smoking Tobacco: Never Assessed Sex and Gender Information Value Date Recorded Sex Assigned at Not on file Legal Sex Male 11:09 PM EST Gender Identity Not on file Sexual Orientation Not on file Plan of Treatment Health Maintenance Due Date Last Done Comments DTaP,Tdap,and Td Vaccines (1 - Tdap) 02/28/1999 Hepatitis B Vaccines (1 of 3 - 19+ 3-dose series) 02/28/1999 HPV Vaccines (1 - 3-dose SCD M series) 02/28/2007 Cholesterol Screening (Lipid Panel) 12/07/2023 HIV Screening 12/07/2023 Hepatitis C Screening 12/07/2023 Social Influencers of Health Screening 12/07/2023 Depression Screening 2024 COVID-19 Vaccine ( - 2024-2 6 season) 2024 Influenza Vaccine (#1) 2024 RSV Immunization Adult Patie nts (1 - 1-dose 75+ series) 02/28/2055 HIB Vaccines Aged Out No longer eligi ble based on patient's age to complete this topic Hepatitis A Vaccines Aged Out No long er eligible based on patient's age to complete this topic IPV Vaccines Aged Out No longer eligi ble based on patient's age to complete this topic MMR Vaccines Aged Out No longer eligi ble based on patient's age to complete this topic Meningococcal ACWY Vaccine Aged Out N o longer eligible based on patient's age to complete this topic Meningococcal B Vaccine Aged Out No l onger eligible based on patient's age to complete this topic Pneumococcal Vaccine: Pediat rics (0 to 5 Years) and At-Risk Patients (6 to 49 Years) Aged Out No longer eligible b ased on patient's age to complete this topic RSV Immunization Patients Un amanda 20 months Aged Out No longer eligible b ased on patient's age to complete this topic Varicella Vaccines Aged Out No longer eligible based on patient's age to complete this topic Care Teams Human Resources Communications Manager Relationship Specialty Start Date End Date Jaimee Kwan MD PCP - General Internal Medicine 05/03/16
--- OUTSIDE RECORDS SUMMARY | 2025-02-26 20:37 | XMS_ITS | Clinical Summary ---
Author Organization [facility] Address [address] [place] [id number] Phone Care Team Providers Care Vp Business Development Name Role Phone Jamison Bueno MD Primary Care Provider Allergies No known active allergies Medications insulin lispro (ADMELOG, HUMALOG) 100 unit/mL injection pen 03/23/2023 Activ e VENTOLIN HFA 90 mcg/actuation inhaler INHALE 1 PUFF INTO THE LUNGS EVERY 4 HOURS NEEDED FOR 30 DAYS 02/22/2023 Active traMADoL (ULTRAM) 50 mg tablet 04/15/2023 Active diclofenac sodium (VOLTAREN) 75 MG EC tablet Take 1 tablet (75 mg total) by mouth 2 (two) times a day. 60 tablet 1 04/22/2023 Active Social History Tobacco Use Types Packs/Day Years Used Date Smoking Tobacco: Never Assessed Education Answer Date Recorded Are you interested in more education? Not on primo e 04/14/2023 Are you concerned about learning? Not on file 04/14/2023 No 04/14/2023 No 04/14/2023 Digital Access Answer Date Recorded No 04/14/2023 No 04/14/2023 Reliable internet access at home? Not on file 04/14/2023 Device with a working camera? Not on file Sex and Gender Information Value Date Recorded Sex Assigned at Not on file Legal Sex Male 9:17 AM EST Gender Identity Not on file Sexual Orientation Not on file Plan of Treatment Health Maintenance Due Date Last Done Comments LIPID PANEL 1980 DEPRESSION SCREENING 1992 SMOKING Hx and SMOKELESS TOBACCO SCREENING 02/28/1993 HEPATITIS C SCREENING 02/28/1998 HIV ONE-TIME SCREENING (18-6 5 YEARS) 02/28/1998 INFLUENZA VACCINE (#1) 2024 3, 11/22/2011 COVID-19 VACCINE (3 - 2024-2 6 season) 2024 04/14/2021, 03/09/2021 Adult Td,Tdap Booster 07/18/2028 07/18/2018 PNEUMOCOCCAL VACCINES (0-49 years) Aged Out 07/18/2018 No longer eligible b ased on patient's age to complete this topic HEPATITIS A VACCINES Aged Out No long er eligible based on patient's age to complete this topic HIB VACCINES Aged Out No longer eligi ble based on patient's age to complete this topic MENINGOCOCCAL VACCINES (ACWY) Aged Out No longer eligible based on patient's age to complete this topic MENINGOCOCCAL VACCINES (B) Aged Out N o longer eligible based on patient's age to complete this topic Medical Devices Not on file Insurance [employer] [facility] Member Subscriber Plan / Payer (Ef fective 2023-Present) Name:Russell Stafford Relation to Subscriber:Self Name:Russell Stafford Payer ID:[id number] Group ID:[id number] Type:Medicaid Address: [place] [id number] [facility] Care Teams Vp Business Development Relationship Specialty Start Date End Date Jamison Bueno MD [address] [facility] [address] [place] [address] PCP - General Internal Medicine 04/14/23 Additional Source Comments The information contained in this document represents components of the legal health record. It is not the complete legal health record.[facility]
== END 2025-02-26 20:43 | disposition left against medical advice (07) ==
LOC: HO.ED 20:34
PROVIDERS: Emergency Provider Emergency Medicine; PCP Hospitalist
DX: L02.415 Cutaneous abscess of right lower limb (principal)
CPT/HCPCS: 99281